=== PATIENT | female | born 1955 | race Caucasian/White ===

== ENCOUNTER 2019-07-03 23:20 | Emergency (ER) | payer MEDICARE, OTHER, SELFPAY ==
[2019-07-03 23:21] VITALS: BP 192/85; PULSE 68; RESP 18; TEMP 36.7; O2SAT 100; BMI 28.2
--- NOTE | 2019-07-03 23:31 | RAD_ITS ---
STUDY: X-RAY - LEFT SHOULDER REASON FOR EXAM: Female, 63 years old. s/p fall -- c/o pain to rt wrist and lt shoulder TECHNIQUE: 4 view(s) of the shoulder. COMPARISON: None. FINDINGS: Normal glenohumeral articulation. Normal acromioclavicular joint. Normal acromion. There is an avulsion fracture at the base of the greater tuberosity. The soft tissue structures are unremarkable. Normal visualized pulmonary apex. RAD/Shoulder min 2 Views IMPRESSION: There is an avulsion fracture at the base of the greater tuberosity. Electronically Signed: Ant Block, at 0:37 EST Tel , Service support ,
--- NOTE | 2019-07-03 23:31 | RAD_ITS ---
STUDY: X-RAY - RIGHT WRIST REASON FOR EXAM: Female, 63 years old. s/p fall -- c/o pain to rt wrist and lt shoulder TECHNIQUE: 3 view(s) of the wrist were obtained. COMPARISON: None. FINDINGS: There is nondisplaced fracture in the distal metaphysis of the radius. Normal radiocarpal articulation. Normal distal radioulnar articulation. Normal carpal bones. Normal carpal articulations. Normal carpometacarpal articulation of the thumb. Normal second through fifth carpometacarpal articulations. Normal visualized metacarpal bones. The soft tissue structures are unremarkable. RAD/Wrist min 3 Views IMPRESSION: There is nondisplaced fracture in the distal metaphysis of the radius. Electronically Signed: Ant Block, at 0:36 EST Tel , Service support ,
--- NOTE | 2019-07-03 23:31 | CT_ITS ---
STUDY: CT BRAIN WITHOUT CONTRAST REASON FOR EXAM: Female, 63 years old. FELL ON STAIRS, LACERATION TO RIGHT SIDE HEAD WITH STITCHES RADIATION DOSAGE (If Supplied By Facility): CTDIvol = ( 44.99 ) mGy, DLP = ( 829.85 ) mGycm TECHNIQUE: Transaxial CT imaging of the brain was performed without administration of intravenous contrast material. Individualized dose optimization techniques were used for this CT. COMPARISON: No relevant priors. FINDINGS: Normal soft tissue structures. Normal calvarium. Normal size ventricles and extra-axial spaces for the patient''s age. There are areas of decreased attenuation within the white matter tracts of the supratentorial brain, consistent with microvascular disease changes. Normal basal ganglia and thalami. Normal brainstem. Normal cerebellum. There is no intracranial hemorrhage. There are no findings of an acute ischemic infarction. Normal visualized paranasal sinuses. CT/Brain/Head without Contrast IMPRESSION: Chronic involutional changes of the brain. Electronically Signed: Ant Block, at 0:22 EST Tel , Service support ,
--- NOTE | 2019-07-03 23:49 | ED.VIS.GEN ---
History of Present Illness Chief Complaint: Fall Informant: Patient, Family Onset: Today Narrative: Just prior to arrival the patient was walking up some steps after letting her dog out the house. She fell forward striking her head on some cinderblocks. She tried to catch herself and injured her right wrist and left shoulder. Unknown last tetanus. No nausea vomiting. No loss of consciousness. Past Medical History - Allergies and Home Meds Allergies/Adverse Reactions: Allergies No Known Allergies Allergy (Verified 07/03/19 23:21) Primary Care Physician: Jose Antonio Dalton DO [Primary Care Provider] - 7 Days for suture removal Smoking Status: Never smoker Review of Systems General: Denies: Chills, Fever, Sweats Eyes: Denies: Visual changes - bilaterally, Diplopia ENT: Denies: Rhinorrhea, Sore throat Cardiovascular: Denies: Chest pain, Palpitations Respiratory: Denies: Dyspnea, Cough, Dyspnea on exertion Gastrointestinal: Denies: Abdominal pain, Nausea, Vomiting, Diarrhea, Melena, Hematochezia Genitourinary: Denies: Dysuria, Hematuria, Frequency Musculoskeletal: Denies: Back pain, Extremity Pain Skin: Denies: Rash, Wounds Neurological: Denies: Headache, Weakness, Numbness Physical Exam Vital Signs/Narrative: Vital Signs Temp Pulse Resp BP Pulse Ox 07/03/19 23:21 98.1 F 68 18 192/85 H 100 Inital Vital Signs reviewed: Yes General: Well nourished, Well developed, No Acute Distress Head: Normocephalic, Trauma, - - Right parietal scalp demonstrates a 3-1/2 cm long linear laceration with arteriole bleed. No bony depression. Eyes: Perrl, EOMI ENT: Moist mucous membranes, No rhinorrhea Neck: Supple, Nontender Cardiovascular: Regular rate, Regular rhythm, No murmurs Respiratory: No distress, CTA bilaterally, Chest nontender Abdomen: Soft, Nontender, Nondistended, Normal bowel sounds Back: Nontender, Normal Inspection Extremities: No edema, Tenderness - Patient has tenderness and limited range of motion at the left shoulder. No clavicle or AC tenderness. No symptoms below the elbow.The right wrist demonstrates a focal area of hematoma over the lateral dorsum of the wrist. She is able to supinate and pronate. Skin: Normal color, No rash Neurological: Alert, Oriented x3, Cranial nerves II-XII grossly intact, Normal Strength, Normal Sensation Psychological: Normal affect, Normal Mood Diagnostic/Tx/Re-eval - Medical Decision Making Patient's tetanus status was updated with Adacel. The scalp laceration was locally anesthetized using 1% lidocaine with epinephrine. Once the hair was removed out of the way to identify the laceration 3-0 simple interrupted Ethilon sutures were placed (total of 5). This provided homeostasis. Patient tolerated the procedure extremely well. Patient was then taken to CT scan and had x-rays of her shoulder and wrist performed. CT the brain was negative for intracranial hemorrhage or skull fracture. X-rays of the wrist demonstrated a distal radius fracture and x-rays of the shoulder demonstrated a proximal humerus fracture. Humerus fracture will be placed in a sling. The right wrist was placed in an AP splint. She has not seen orthopedics in the past. She received 10 mg oxycodone here and will be discharged home with a prescription for same. Wound care discussed with patient. Anibal Haynes on-call for [facility]. Procedures - Upper Extremity Splints Upper Extremity Splint: Plaster Splint Fabrication: Fabricated Location: Right - She was placed in an AP plaster splint with the wrist in the safe position. Neurovascular intact pre-and post application. ED Disposition - Plan for ED Patient: Disposition: Home or Assisted Living Diagnosis: Scalp laceration, Fracture of right distal radius, Left humeral fracture Instructions: LACERATION, All Prescriptions: Oxycodone HCl/Acetaminophen [Percocet 5/325] 1 tab PO Q6H PRN PRN 3 Days #12 tab PRN Reason: Pain Prescription Printed Referrals: Jose Antonio Dalton DO [Primary Care Provider] - 7 Days for suture removal Anibal Haynes MD [STAFF PHYSICIAN] - (call to arrange orthopedic follow up)
[2019-07-04] MEDS: oxyCODONE 5 MG Tablet 10 MG PO (00:10)
[2019-07-04] MEDS: Diphth,Pertuss(Acell),Tet Vac 0.5 ML Vial IM (00:12)
[2019-07-04 00:38] VITALS: BP 162/87; PULSE 82; RESP 18; O2SAT 96
== END 2019-07-04 00:42 | disposition home or self-care (01) ==
PROVIDERS: Emergency Provider Emergency Medicine; Family Provider Student in an Organized Health Care Education/Training Program; PCP Student in an Organized Health Care Education/Training Program
DX: S01.01XA Laceration without foreign body of scalp, initial encounter (principal); S52.501A Unspecified fracture of the lower end of right radius, initial encounter for closed fracture; S42.252A Displaced fracture of greater tuberosity of left humerus, initial encounter for closed fracture; W10.9XXA Fall (on) (from) unspecified stairs and steps, initial encounter; Y93.9 Activity, unspecified; Y92.9 Unspecified place or not applicable
CPT/HCPCS: 12002; 29125; 70450; 73030; 73110; 90471; 90715; 99284

== ENCOUNTER 2020-08-22 07:39 | Outpatient (RCR) | payer MEDICARE, OTHER, SELFPAY ==
[2020-08-22] MEDS: COVID-19 VACC, MRNA(PFIZER)/PF 30 MCG/0.3 ML SYRINGE IM (16:39)
[2020-09-12] MEDS: COVID-19 VACC, MRNA(PFIZER)/PF 30 MCG/0.3 ML SYRINGE IM (15:49)
== END 2020-11-26 23:59 ==
LOC: IMMUN 07:39
PROVIDERS: PCP Student in an Organized Health Care Education/Training Program; Referring Provider Family Medicine; Visit Provider Family Medicine
DX: Z23 Encounter for immunization (principal)
CPT/HCPCS: 0001A; 0002A; 91300

== ENCOUNTER 2022-03-27 13:46 | Inpatient (IN) | payer MEDICARE, OTHER, SELFPAY ==
[2022-03-27] VITALS (10 sets, daily range): BP systolic 93–156; BP diastolic 55–97; PULSE 66–125; RESP 16–26; TEMP 36.4–36.6; O2SAT 95–100; BMI 29.1; BMI 27.6
--- NOTE | 2022-03-27 14:04 | RAD_ITS ---
STUDY: X-RAY CHEST REASON FOR EXAM: Female, 66 years old. chest pain TECHNIQUE: Single AP portable view of the chest. COMPARISON: None. FINDINGS: Sternotomy wires are midline. The lungs are clear and expanded. There is no demonstrated pleural abnormality. Normal size heart. Normal mediastinum and jules. Normal visualized pulmonary arteries. Normal visualized aortic arch and descending thoracic aorta. Normal visualized thoracic spine. Normal visualized ribs, clavicles, and shoulders. There is no demonstrated abnormality of the visualized soft tissue structures of the upper abdomen. RAD/Chest 1 View (Portable) IMPRESSION: No evidence of acute cardiopulmonary process. Electronically Signed: Mohsen Pham DO at 14:18 EDT ,
[2022-03-27] MEDS: Aspirin 81 MG TAB.CHEW 324 MG PO (14:13)
--- NOTE | 2022-03-27 14:24 | ED.VIS.CHEST ---
HPI History of Present Illness Chief Complaint: Chest Pain Informant: patient Narrative Narrative: Patient is a 66-year-old female that is status post aortic valve repair secondary to severe aortic stenosis as well as CABG x2 vessels on 03/17/2022. This was performed at [facility]. She was discharged on 03/25-2 days ago. She was discharged to the [facility] nursing facility for cardiac rehab. Postop course was complicated by proximal atrial fibrillation she was started on Eliquis. She is presenting for chest pain. She states that pain in her chest is pulsating and radiates to her left hand, shoulder blade and neck. She did not have pain like this after her surgery and this feels different than her postoperative pain. She states that she felt okay this morning when she woke up but her pain started when she was in the shower today. At first it was stabbing but now it is more dull in nature. She feels that she is been mildly short of breath for the past few days. She took a pain pill at her nursing facility with no improvement of her symptoms so she came to the ER for further evaluation. She notes that she felt flushed when the pain started. Denies any numbness or tingling in her legs, abdominal pain, nausea or vomiting. No other complaints at this time. [facility] Medical History (Updated 03/27/22 @ 23:[address] Mary Staley, ) CAD (coronary artery disease) Diabetes mellitus, type 2 HLD (hyperlipidemia) HTN (hypertension) Obesity PAF (paroxysmal atrial fibrillation) Valvular heart disease Home Medications atorvastatin 40 mg tablet 40 mg PO DAILY 07/03/19 [History Last Taken Unknown] metformin 500 mg tablet,extended release 24 hr 1,500 mg PO DAILY 07/03/19 [History Last Taken Unknown] multivitamin with minerals 1 tab PO DAILY 07/03/19 [History Last Taken Unknown] omega 3-dha 60 mg-epa 90 mg-fish oil 500 mg capsule, delayed release 500 mg PO DAILY 07/03/19 [History Last Taken Unknown] apixaban 5 mg tablet (Eliquis) 5 mg PO BID 03/27/22 [History Last Taken Unknown] aspirin 81 mg tablet 81 mg PO DAILY 03/27/22 [History Last Taken Unknown] furosemide 40 mg tablet (Lasix) 40 mg PO BID 03/27/22 [History Last Taken Unknown] metoprolol tartrate 50 mg tablet 50 mg PO Q8H 03/27/22 [History Last Taken Unknown] oxycodone 5 mg tablet 5 mg PO Q6H PRN pain 03/27/22 [History Last Taken Unknown] pantoprazole 20 mg tablet,delayed release 20 mg PO DAILY 03/27/22 [History Last Taken Unknown] Allergy/AdvReac Type Severity Reaction Status Date / Time No Known Allergies Allergy Verified 07/03/19 23:21 Family History Mother Hypertension CVA (cerebral vascular accident) Father Myocardial infarction CAD (coronary artery disease) S/P CABG (coronary artery bypass graft) Surgical History (Updated 03/27/22 @ 23:[address] Mary Staley, DO) History of bilateral tubal ligation S/P AVR (aortic valve replacement) S/P CABG x 2 Social History (Updated 03/27/22 @ 20:44 by Telma Rivera) household members: spouse number of children: 3 current occupational status: retired Smoking Status: Never smoker alcohol intake: current alcohol intake frequency: holidays/special occasions only substance use type: does not use ROS ROS ED Constitutional Constitutional ED: Reports sweats; Denies chills or fever(s) Eyes Eyes: Denies blurry vision ENT ENT ED: Denies rhinorrhea or sore throat Cardiovascular Cardiovascular: Reports as per HPI and chest pain Respiratory/Chest Respiratory/Chest: Reports dyspnea; Denies cough Gastrointestinal Gastrointestinal: Denies abdominal pain, diarrhea or vomiting Genitourinary Genitourinary ED: Denies dysuria or hematuria Musculoskeletal Musculoskeletal: Denies back pain or myalgias Integumentary Denies rash Neurologic Neurologic: Denies headache(s) or weakness Psychiatric Psychiatric: Denies anxiety Hematologic/Lymphatic Hematologic/Lymphatic: Reports easy bleeding and easy bruising EXAM Physical Exam Const Vital Signs: 03/27/22 13:47 03/27/22 13:51 03/27/22 13:56 Temperature 97.6 F L Temperature Source Temporal Pulse Rate 125 H Respiratory Rate 26 H Respiratory Effort Short of Breath Blood Pressure 124/64 H Blood Pressure Mean 84 Pulse Ox 100 Oxygen Delivery Method Room Air Room Air 03/27/22 14:47 03/27/22 15:47 03/27/22 16:47 Temperature Temperature Source Pulse Rate 67 96 66 Respiratory Rate Respiratory Effort Blood Pressure 122/97 H 125/79 H 105/61 Blood Pressure Mean 105 94 75 Pulse Ox Oxygen Delivery Method 03/27/22 18:30 03/27/22 19:00 Temperature Temperature Source Pulse Rate 97 97 Respiratory Rate 17 16 Respiratory Effort Blood Pressure 110/55 L 93/58 L Blood Pressure Mean 73 69 Pulse Ox 98 98 Oxygen Delivery Method Room Air Positive well nourished and well developed General Appearance ED: well developed and NAD HEENT Reports dry mucous membranes normocephalic and atraumatic Mouth ED: Yes dry mucous membranes Mouth: dry mucous membranes Eyes PERRL and EOMs intact bilaterally Neck supple and no JVD Chest Wall Chest Narrative: Midline sternotomy surgical incision present. Well approximated with no signs of secondary infection, dehiscence or or other abnormality. Associated chest wall tenderness with palpation Resp normal respiratory effort and clear to auscultation bilaterally Cardio Rate: tachycardic Rhythm: abnormal rhythm irregularly irregular Peripheral Pulses: pulses 2+ throughout GI normal to inspection, nondistended, normoactive bowel sounds and soft to palpation Extremity normal to inspection General Extremety ED: Negative for edema General Extremity: Negative for edema Neuro oriented x3 Neuro Narrative: No focal deficits Sensorium / Orientation: awake and alert Psych mental status grossly normal Mood & Affect: anxious Skin no rashes or lesions noted Skin Narrative: Surgical incision anterior chest wall and upper abdomen, healing with no signs of infection Heart Score History: Slightly/Non-Suspicious ECG: Nonspecific Repolarization Age: >/= 65 years Risk Factors: >/= 3 Risk Factors or History of CAD Troponin: >/=3 x Normal Limit Score: 7 MDM MDM MDM Narrative Medical decision making narrative: Patient is evaluated for chest pain. She is a little less than 2 weeks status post atrial valve r replacement and CABG x2. She has associated shortness of breath. She is anticoagulated with Eliquis secondary to postoperative atrial fibrillation. Hemoglobin is mildly low at 11.8 but appropriate given her recent postoperative status. Initial paperwork showed creatinine of 3 from yesterday at nursing facility. Patient is given 162 mg of aspirin as she took 81 mg aspirin today and guidance morphine for pain control. Her pain on route resolves significantly with the morphine and she does not take the nitroglycerin. She is given IV fluids and her tachycardia also resolved. She is not given anything further for rate control. Patient's creatinine is elevated at 2.10. Her baseline appears to be closer to 1-1.3. Her high sensitive troponin is elevated at 218 and then on repeat 208. Her high sensitive troponin is elevated at 218 and then on repeat 208. As she is less than 2 weeks status post open heart surgery likely this is residual from that. I really suspect her chest pain is more incisional associated with her sternotomy. She will require admission for her renal function. Case is discussed with Dr. Alejo Jama, cardiothoracic surgery at [facility] who agrees that the troponin leak is likely from her recent surgery and does not think any acute intervention is needed on their hand. Is comfortable with us treating her MONTRELL at our facility and if anything develops in the meantime we can transfer her at a later point. Patient is agreeable this plan of care. I discussed the case with our cardiology on-call, Dr. Rojas, who does not feel like this is a cardiologic issue, but cardiothoracic and medicine. He does not have any recommendations at this time. Patient and family are agreeable with admission for MONTRELL at [facility]. Lab Data Attestation: I reviewed the patient's lab results. Labs: Laboratory Results - last 24 hr 03/27/22 03/27/22 03/27/22 14:15 14:15 14:15 WBC 9.2 RBC 3.82 L Hgb 11.8 L Hct 35.9 L MCV 94.0 MCH 30.9 MCHC 32.9 RDW Std Deviation 43.9 RDW Coeff of Abby 12.9 Plt Count 347 MPV 9.4 Immature Gran % (Auto) 0.400 Neut % (Auto) 61.3 Lymph % (Auto) 25.9 [place] % (Auto) 9.4 Eos % (Auto) 2.3 Baso % (Auto) 0.7 Absolute Neuts (auto) 5.6 Absolute Lymphs (auto) 2.38 Nucleated RBC % 0 Sodium 135 L Potassium 4.0 Chloride 97 L Carbon Dioxide 24.0 Anion Gap 14 BUN 49 H Creatinine 2.10 H Estim Creat Clear Calc 23.07 Est GFR (MDRD) Af Amer 30 L Est GFR (MDRD) Non-Af 25 L BUN/Creatinine Ratio 23.3 H Glucose 236 H Calcium 10.3 H Magnesium 2.2 Troponin I High Sens 218 H* B-Natriuretic Peptide 553.5 H 03/27/22 16:35 WBC RBC Hgb Hct MCV MCH MCHC RDW Std Deviation RDW Coeff of Abby Plt Count MPV Immature Gran % (Auto) Neut % (Auto) Lymph % (Auto) [place] % (Auto) Eos % (Auto) Baso % (Auto) Absolute Neuts (auto) Absolute Lymphs (auto) Nucleated RBC % Sodium Potassium Chloride Carbon Dioxide Anion Gap BUN Creatinine Estim Creat Clear Calc Est GFR (MDRD) Af Amer Est GFR (MDRD) Non-Af BUN/Creatinine Ratio Glucose Calcium Magnesium Troponin I High Sens 208 H* B-Natriuretic Peptide Radiography Chest X-Ray - ED: 1 View, Read by ED Physician, Read by Radiologist and No Acute Disease Diagnostic Testing: Clinical Impression(s) from Imaging Studies Chest X-Ray 03/27/22 14:04 IMPRESSION: No evidence of acute cardiopulmonary process. Electronically Signed: Mohsen Pham DO at 14:18 EDT Reading Location ID and State: [id number] / [place] , Service support , Rhythm Strip Rhythm Strip: A-fib Rate: 111 Ectopy: None EKG Initial EKG: Attestation: I personally reviewed and interpreted this EKG as follows: Interpretation: Atrial Fibrillation Comments: Atrial fibrillation at a rate of 111 Left axis deviation Bifascicular block with right bundle sonia block and left anterior fascicular block T wave inversions in V1 and V2 with no reciprocal changes Compared to prior EKG odd 03/25/2022, patient does doubt atrial fibrillation and tachycardic but no ST segment changes Discharge Plan Dx/Rx/DC Orders Clinical Impression: Chest pain, MONTRELL (acute kidney injury), S/P CABG x 2 Disposition Disposition: Acute Care Hospital [facility] Discharge Date/Time: 03/27/22 20:34
[2022-03-27 14:27] LABS: Absolute Lymphocyte Count 2.38 X10^3/uL (0.83-4.51); Absolute Neutrophil Count 5.6 X10^3/uL (2.0-7.7); Basophil# 0.06 X10^3/uL; Basophil% 0.7 % (0-1); Eosinophil# 0.21 X10^3/uL; Eosinophils% 2.3 % (0-5); Hematocrit 35.9 % (37-47); Hemoglobin 11.8 g/dL (12.0-15.0); Lymphocyte # 2.38 X10^3/ul (0.83-4.51); Lymphocyte % 25.9 % (19-41); Mean Corp Hgb Conc 32.9 g/dL (32-36); Mean Corpuscular Hgb 30.9 pg (27.0-32.0); Mean Platelet Vol. 9.4 fl (6.2-12.0); Monocyte# 0.86 X10^3/uL; Monocyte% 9.4 % (0-10); NRBC Flagged by Analyzer 0 % (0-5); Neutrophil # 5.63 X10^3/uL (2.7-7.7); Neutrophil % 61.3 % (47-70); Platelet Count 347 K/mm3 (150-450); RBC Distribution Width CV 12.9 % (11.6-14.6); RBC Distribution Width SD 43.9 fl (35.1-43.9); Red Blood Count 3.82 M/mm3 (4.2-5.4); White Blood Count 9.2 K/mm3 (4.4-11.0)
[2022-03-27 14:49] LABS: Anion Gap 14 (5-15); BUN 49 mg/dL (7-18); BUN/Creat Ratio 23.3 RATIO (10-20); Calcium,Total 10.3 mg/dL (8.5-10.1); Chloride 97 mmol/L (98-107); EST Glomerular Filtration Rate 25 mL/min (>60); Est Glom Filt Rate - Afr Amer 30 mL/min (>60); Estimated Creatinine Clearance 23.07 ml/min; Glucose 236 mg/dL (74-106); Magnesium 2.2 mg/dL (1.6-2.6); Sodium Level 135 mmol/L (136-145); Troponin-I HS (w/2H Reflex) 218 pg/mL (3.0-54.0)
[2022-03-27 14:56] LABS: BNP,B-Type NATRIURETIC PEPTIDE 553.5 pg/mL (0-100)
[2022-03-27] MEDS: 0.9% Normal Saline 1,000 ML 999 ML IV (14:58)
[2022-03-27] MEDS: Morphine 4 MG/ML Syringe IV (14:58)
[2022-03-27 16:23] LABS: Reflex Troponin-HS? (from REC) Y
[2022-03-27 17:08] LABS: Troponin-I HS 208 pg/mL (3.0-54.0)
--- NOTE | 2022-03-27 17:41 | PCM.HP.STD ---
HPI - General General Date of Admission: 03/27/22 Date of Service: 03/27/22 Chief Complaint: Chest pain HPI Narrative The patient is a 66 y/o F w/ PMHx: PAF, Obesity, HTN, HLD, Diabetes mellitus type II, Valvular Heart Disease w/ Aortic Stenosis s/p #23 CE AVR 03/17/22, CAD s/p CABG x 2 (LAD-MENDEZ, PLB-SVG, #23 CE AVR 03/17/22) who presents to the [facility] ED on 03/27/22 with history of recent discharge from [facility] following CABG and AVR on 05/25 transition to skilled facility with postop course complicated by PAF with initiation of Eliquis as well as continue metoprolol who now presents to the [facility] ED on 03/27/22 with history of onset chest pain with radiation to her left upper extremity including the shoulder blade, neck as well as left hand reporting the discomfort is 10 out of 10 in severity with pressure in her chest and more dull aching throb to the left upper extremity with associated sensation of being flushed as well as noted with no nausea or emesis reporting that the symptoms persisted for least 2 hours currently reporting her discomfort 3 out of 10 in severity but noting only some mild chest pressure with administration of pain regimen at the skilled facility however she had no improvement prompting skilled facility to transition her to the ED for evaluation. Work-up in the ED included T97.6, heart rate initially 125 with most recent repeat 66, BP 124/64 with most recent repeat 105/61, respiratory rate 26, 100% on room air, CBC with WBC 9.2, hemoglobin 11.8, MCV 94, platelet 347 without marked shift, BMP with sodium 135, chloride 97, BUN/creatinine 49/2.10, glucose 236, calcium 10.3, magnesium 2.2, BNP 553.5, initial troponin 218 with repeat 208, chest x-ray with no acute cardiopulmonary findings with sternotomy wires noted midline, EKG atrial fibrillation with initially RVR but improved while in the ED and compared to 03/25/22 improved, no acute evidence of ischemia. In the ED patient ministered full-strength aspirin 324 mg p.o. x1, nitroglycerin sublingual, normal saline bolus, morphine 4 mg IV x1. ED did discuss case with patient's cardiothoracic surgery team and they were amenable with patient remaining at [facility]. ED also discussed case with cardiology on-call, Dr. Rojas given patient's recent history recommended deferral of cardiology consult at this time and if necessary consideration of nephrology involvement if renal function worsened. COUNTS INCLUDE 234 BEDS AT THE [facility] Medical History (Updated 03/27/22 @ 19:[address] Lucina Salmon MD) CAD (coronary artery disease) Diabetes mellitus, type 2 HLD (hyperlipidemia) HTN (hypertension) Obesity PAF (paroxysmal atrial fibrillation) Valvular heart disease Home Medications atorvastatin 40 mg tablet 40 mg PO DAILY 07/03/19 [History Last Taken Unknown] metformin 500 mg tablet,extended release 24 hr 1,500 mg PO DAILY 07/03/19 [History Last Taken Unknown] multivitamin with minerals 1 tab PO DAILY 07/03/19 [History Last Taken Unknown] omega 3-dha 60 mg-epa 90 mg-fish oil 500 mg capsule, delayed release 500 mg PO DAILY 07/03/19 [History Last Taken Unknown] apixaban 5 mg tablet (Eliquis) 5 mg PO BID 03/27/22 [History Last Taken Unknown] aspirin 81 mg tablet 81 mg PO DAILY 03/27/22 [History Last Taken Unknown] furosemide 40 mg tablet (Lasix) 40 mg PO BID 03/27/22 [History Last Taken Unknown] metoprolol tartrate 50 mg tablet 50 mg PO Q8H 03/27/22 [History Last Taken Unknown] pantoprazole 20 mg tablet,delayed release 20 mg PO DAILY 03/27/22 [History Last Taken Unknown] Allergy/AdvReac Type Severity Reaction Status Date / Time No Known Allergies Allergy Verified 07/03/19 23:21 Family History (Updated 03/27/22 @ 17:[address] Lucina Salmon MD) Mother Hypertension CVA (cerebral vascular accident) Father Myocardial infarction CAD (coronary artery disease) S/P CABG (coronary artery bypass graft) Surgical History (Updated 03/27/22 @ 19:[address] Lucina Salmon MD) History of bilateral tubal ligation S/P AVR (aortic valve replacement) S/P CABG x 2 Social History (Updated 03/27/22 @ 17:[address] Lucina Salmon MD) household members: spouse Smoking Status: Never smoker alcohol intake: current alcohol intake frequency: holidays/special occasions only substance use type: does not use ROS ROS Narrative Admission Review of Systems: CONSTITUTIONAL: No weight loss, fever, chills, + weakness or fatigue. HEENT: Eyes: No visual loss, blurred vision, double vision or yellow sclerae. Ears, Nose, Throat: No hearing loss, sneezing, congestion, runny nose or sore throat. SKIN: + healing sternotomy incision, no drainage and occasional staged ecchymoses. CARDIOVASCULAR: + chest pain, chest pressure or chest discomfort, No palpitations, edema, orthopnea, syncopal events. RESPIRATORY: + shortness of breath, No cough or sputum, wheezing, hemoptysis. GASTROINTESTINAL: No anorexia, nausea, vomiting or diarrhea, abdominal pain, melena, BRBPR. GENITOURINARY: No dysuria, frequency, urgency or retention. NEUROLOGICAL: No headache, dizziness, syncope, paralysis, ataxia, numbness or tingling in the extremities, focal weakness, change in bowel or bladder control, seizure. MUSCULOSKELETAL: + muscle, back pain, joint pain or stiffness. HEMATOLOGIC: + anemia, bleeding or bruising. LYMPHATICS: No enlarged nodes. No history of splenectomy. PSYCHIATRIC: No history of depression or anxiety. ENDOCRINOLOGIC: No reports of sweating, cold or heat intolerance. No polyuria or polydipsia. ALLERGIES: No history of asthma, hives, eczema or rhinitis. Vital Signs Vital Signs Vital Signs: 03/27/22 13:47 03/27/22 13:51 03/27/22 13:56 Temperature 97.6 F L Temperature Source Temporal Pulse Rate 125 H Respiratory Rate 26 H Respiratory Effort Short of Breath Blood Pressure 124/64 H Blood Pressure Mean 84 Pulse Ox 100 Oxygen Delivery Method Room Air Room Air 03/27/22 14:47 03/27/22 15:47 03/27/22 16:47 Temperature Temperature Source Pulse Rate 67 96 66 Respiratory Rate Respiratory Effort Blood Pressure 122/97 H 125/79 H 105/61 Blood Pressure Mean 105 94 75 Pulse Ox Oxygen Delivery Method Weight Weight: 175 lb 4.28 oz Body Mass Index (BMI) 29.1 Physical Exam Narrative Physical Examination: General: Awake, alert, oriented x 3 and cooperative, seated upright in the ED bed, fatigued, notes chest discomfort has been subsiding. Skin: Normal color, normal turgor, no icterus, no cyanosi except for healing midline sternotomy and chest tube incisions s, well appearing as well as occasional staged ecchymoses. HEENT: AT/NC, EOMI, PERRLA, mildly dry MM, no carotid bruits or JVD noted. Lungs: Mildly diminished, greater bases, appropriate effort, no markedly noted rales, ronchi or wheezing. Heart: Irregular, rate controlled currently; no gallop, rub audible. Abdomen: Soft, overweight, NTTP, ND, distant normal BS, no HSM. Extremities: No cyanosis, clubbing, or edema. Neurological: Patient awake, alert, oriented x 3, cognitive function intact; pupils equally reactive to light and accommodation, cranial nerves II-XII grossly normal, moving all 4 extremities, no focal deficits, strength moderately global decreased given recent CABG with limitations of movement. Psychiatric: Affect appears fatigued otherwise normal, no acute evidence of depressive or anxiety feelings. Results Lab / Micro Data Result Diagrams: 03/27/22 14:15 03/27/22 14:15 Labs: Laboratory Results - last 24 hr 03/27/22 14:15: WBC 9.2, RBC 3.82 L, Hgb 11.8 L, Hct 35.9 L, MCV 94.0, MCH 30.9, MCHC 32.9, RDW Std Deviation 43.9, RDW Coeff of Abby 12.9, Plt Count 347, MPV 9.4, Immature Gran % (Auto) 0.400, Neut % (Auto) 61.3, Lymph % (Auto) 25.9, [place] % (Auto) 9.4, Eos % (Auto) 2.3, Baso % (Auto) 0.7, Absolute Neuts (auto) 5.6, Absolute Lymphs (auto) 2.38, Nucleated RBC % 0 03/27/22 14:15: Sodium 135 L, Potassium 4.0, Chloride 97 L, Carbon Dioxide 24.0, Anion Gap 14, BUN 49 H, Creatinine 2.10 H, Estim Creat Clear Calc 23.07, Est GFR (MDRD) Af Amer 30 L, Est GFR (MDRD) Non-Af 25 L, BUN/Creatinine Ratio 23.3 H, Glucose 236 H, Calcium 10.3 H, Magnesium 2.2, Troponin I High Sens 218 H* 03/27/22 14:15: B-Natriuretic Peptide 553.5 H 03/27/22 16:35: Troponin I High Sens 208 H* Radiology Impression Chest X-Ray 03/27/22 14:04 IMPRESSION: No evidence of acute cardiopulmonary process. Electronically Signed: Mohsen Pham, DO at 14:18 EDT Reading Location ID and State: [facility] / [place] , Service support , Assessment & Plan Assessment/Plan (1) Chest pain: (2) MONTRELL (acute kidney injury): PLAN: Plan The patient is a 66 y/o F w/ PMHx: PAF, Obesity, HTN, HLD, Diabetes mellitus type II, Valvular Heart Disease w/ Aortic Stenosis s/p #23 CE AVR 03/17/22, CAD s/p CABG x 2 (LAD-MENDEZ, PLB-SVG, #23 CE AVR 03/17/22) who presents to the [facility] ED on 03/27/22 with history of recent discharge from [facility] following CABG and AVR on 05/25 transition to skilled facility with postop course complicated by PAF with initiation of Eliquis as well as continue metoprolol who now presents to the [facility] ED on 03/27/22 with history of onset chest pain prompting skilled facility to transition her to the ED for evaluation. #1. Chest Pain with Elevated Troponin in the setting of recent CABG x 2 (LAD-MENDEZ,PLB-SVG) and AVR, suspect elevated troponin likely secondary to recent intervention, chest discomfort possibly related with recent operative intervention: In the ED initial troponin 218 with repeat 208 which would be expected chest x-ray with no acute cardiopulmonary findings with sternotomy wires noted midline, EKG atrial fibrillation with initially RVR but improved while in the ED and compared to 03/25/22 improved, no acute evidence of ischemia. Will admit to PCU, maintain on a monitored bed, continue serial cardiac enzymes and EKGs. Magnesium level 2.2. We will continue medical management. ED did discuss case with patient's cardiothoracic surgery team and they were amenable with patient remaining at [facility]. ED also discussed case with cardiology on-call, Dr. Rojas given patient's recent history recommended deferral of cardiology consult at this time and if necessary consideration of nephrology involvement if renal function worsened. Of note patient is interested in potentially transitioning to TCU or acute rehab if she is a candidate therefore case management will be consulted. #2. Acute kidney injury: Secondary to likely. Admission BUN/Cr 49/2.10, 03/25/2022 labs performed per [facility] with BUN/creatinine 35/1.38 and 03/19/2022 BUN/creatinine 18/1.37. Will hydrate judiciously, hold nephrotoxic medications and repeat chemistry in AM, obtain FeNa assessment, obtain UA. #3. Valvular heart disease: Status post recent AVR (#23 CE) during also CABG x 2 (LAD-MENDEZ,PLB-SVG) as noted. From review of outside records, patient Preop LVEF: 67% RVF: Normal. Trace to 1+MR. Trace TR. Severe pkmn grad 48/28 mmHg. SAVAGE 0.62 cm2 and postop LVEF: Normal RVF: Normal. #4. PAF: We will continue patient home Eliquis as well as metoprolol regimen. From review of outside facility records patient postoperatively did have onset of atrial fibrillation with RVR and was treated with amnio bolus as well as infusion, placed on beta-monserrat metoprolol 50 mg every 8 hours with episodes of converting to sinus rhythm however she then returned into atrial fibrillation and was also started on Eliquis. Patient is planned to follow-up with EP as an outpatient. #5. Hypertension: Continue home regimen including metoprolol, holding Lasix regimen given MONTRELL, resume once appropriate, PRN hydralazine. #6. Hyperlipidemia: Continue home statin regimen. #7. Obesity: Weight loss and lifestyle changes encouraged. #8. Diabetes mellitus type II: Hold oral home regimen, ADA, accu checks w/ ISS. #9. DVT prophylaxis: SCDs, continue patient home Eliquis regimen. #10. CODE status: Patient NILE is her who is present and living will is currently in place. Discussed CODE status at length including difference between FULL code, DNR-CCA and DNR-CC status. Following discussions about the differences in these status, requested Full Code status. Advanced Care Planning Face to Face Time: 16 minutes. Charges/Coding Visit Charges Inpatient E&M: 29749 Init Hosp L3 Procedures Hospitalists Procedures: 54473 Advncd Care Plan 30 Min
--- NOTE | 2022-03-27 18:18 | ED.RN ---
CALLED [facility] MAIN TO HAVE WHOEVER IS NOT CALL FOR DR. HARVEY. FOOD SERVICE TECHNICIAN STATES IF WE DO NOT HEAR BACK FROM A DOCTOR BY 1917 WE CAN CALL TO HAVE THEM PAGE AGAIN.
--- NOTE | 2022-03-27 18:30 | CM.ED ---
MARGARITO was advised by RN that patient's family would like to speak to oncology social work. Family reports that patient was at [facility] and [facility] said that [facility] did cardiac rehab. Thus patient went to [facility]. Patient is interested in TCU/RU for cardiac rehab. MARGARITO called [facility] and left a voice mail. MARGARITO sent email advising of patient's name and desire of family for patient to come to TCU/RU and patient currently being transferred to [facility]. MARGARITO also provided family with [facility] direct number for RU/TCU referrals. Plan: Resources provided Dee KABA
--- NOTE | 2022-03-27 18:34 | ED.RN ---
DR. HARVEY CALLED BACK AND SPOKE WITH DR. CRANE.
--- NOTE | 2022-03-27 20:21 | EKG12_ITS ---
Test Reason : CP ADMIT Blood Pressure : / mmHG Vent. Rate : 101 BPM Atrial Rate : 000 BPM P-R Int : 000 ms QRS Dur : 128 ms QT Int : 422 ms P-R-T Axes : 000 -68 053 degrees QTc Int : 547 ms Atrial fibrillation with rapid ventricular response Right bundle branch block Left anterior fascicular block Bifascicular block Abnormal ECG When compared with ECG of 27-MAR-2022 13:51, MANUAL COMPARISON REQUIRED, DATA IS UNCONFIRMED Confirmed by JESUS LOAIZA, KALEY ([id number]), commissioning editor FRANCI BRUNER ([id number]) on 03/31/2022 9:30:35 AM Referred By: Confirmed By:KALEY LEE MD
[2022-03-27] MEDS: oxyCODONE 5 MG Tablet PO (21:08)
[2022-03-27] MEDS: Atorvastatin Calcium 40 MG Tablet PO (21:08)
[2022-03-27] MEDS: Senna/Docusate Sodium 1 Tablet 2 TABLET PO (21:08)
[2022-03-27] MEDS: Metoprolol Tartrate 50 MG Tablet PO (21:09)
[2022-03-27 21:11] LABS: Troponin-I HS 210 pg/mL (3.0-54.0)
[2022-03-27 21:31] LABS: Bedside Glucose 149 mg/dL (74-106)
[2022-03-27] MEDS: 0.9% Normal Saline 1,000 ML 100 ML IV (21:31)
[2022-03-27] MEDS: 0.9% Saline Lock 10 ML Syringe IV (21:38)
[2022-03-27] MEDS: APIXABAN 5 MG TABLET PO (22:09)
[2022-03-28] VITALS (10 sets, daily range): BP systolic 100–136; BP diastolic 64–83; PULSE 67–98; RESP 16–18; TEMP 36.1–36.9; O2SAT 93–98
[2022-03-28] MEDS: oxyCODONE 5 MG Tablet PO ×4 (01:40→18:28)
[2022-03-28 05:19] LABS: Mucous, Urine 0 SEEN /hpf (<or=2+); Red Blood Cells-Urine 0 SEEN /hpf (0-5)
[2022-03-28 05:21] LABS: Color, Urine Yellow (Yellow); Glucose, Dipstick Normal (Normal); Ketone-Dipstick Negative (Negative); Leukocyte Esterase-Dipstick 500 /ul (Negative); Nitrite-Dipstick Negative (Negative); Occult Blood-Urine Negative /ul (Negative); Protein-Dipstick Negative (Negative); Urine Bilirubin Dipstick Negative (Negative); Urine Clarity Clear (Clear); Urine Urobilinogen Normal (Normal)
[2022-03-28 05:35] LABS: Bacteria 3+ /hpf (None Seen); Renal Epithelial Cells 0-5 SEEN /hpf (0-5); Squamous Epithelial Cells - UA 10-25 SEEN /hpf (5-10); White Blood Cells 10-25 SEEN /hpf (0-5)
[2022-03-28 05:45] LABS: Urine Sodium 49 mmol/L (Not Establ.)
[2022-03-28 05:58] LABS: Absolute Neutrophil Count 4.8 X10^3/uL (2.0-7.7); Basophil# 0.07 X10^3/uL; Basophil% 0.8 % (0-1); Eosinophil# 0.33 X10^3/uL; Eosinophils% 3.9 % (0-5); Hematocrit 29.8 % (37-47); Hemoglobin 9.8 g/dL (12.0-15.0); Lymphocyte % 28.7 % (19-41); Mean Corp Hgb Conc 32.9 g/dL (32-36); Mean Corpuscular Volume 97.4 fL (81-99); Mean Platelet Vol. 9.4 fl (6.2-12.0); Monocyte# 0.78 X10^3/uL; Monocyte% 9.3 % (0-10); NRBC Flagged by Analyzer 0 % (0-5); Neutrophil # 4.75 X10^3/uL (2.7-7.7); Neutrophil % 56.8 % (47-70); Platelet Count 297 K/mm3 (150-450); RBC Distribution Width SD 46.1 fl (35.1-43.9); Red Blood Count 3.06 M/mm3 (4.2-5.4); White Blood Count 8.4 K/mm3 (4.4-11.0)
[2022-03-28] MEDS: 0.9% Normal Saline 1,000 ML 100 ML IV ×2 (06:23→16:32)
[2022-03-28] MEDS: Nystatin Powder 15gm Bottle 1 APPLIC TOPICAL ×2 (06:27→13:11)
[2022-03-28] MEDS: Metoprolol Tartrate 50 MG Tablet PO ×2 (06:28→13:12)
[2022-03-28] MEDS: Insulin Lispro 100 UNIT/ML INSULN.PEN SC ×2 (06:43→11:46)
[2022-03-28 06:45] LABS: ALB/GLOB Ratio 1.1 RATIO (0.9-2.4); AST(SGOT) 14 U/L (15-37); Alanine Aminotransfer ALT/SGPT 23 U/L (13-56); Albumin, Serum 3.3 g/dL (3.2-5.0); Alkaline Phosphatase 74 U/L (45-117); Anion Gap 8 (5-15); BUN 38 mg/dL (7-18); BUN/Creat Ratio 22.9 RATIO (10-20); Calcium,Total 8.8 mg/dL (8.5-10.1); Chloride 106 mmol/L (98-107); Creatinine, Serum 1.66 mg/dL (0.55-1.02); EST Glomerular Filtration Rate 33 mL/min (>60); Est Glom Filt Rate - Afr Amer 39 mL/min (>60); Estimated Creatinine Clearance 29.19 ml/min; Globulin 3.1 g/dL (2.2-4.2); Glucose 154 mg/dL (74-106); Potassium 4.1 mmol/L (3.5-5.1); Protein, Total 6.4 g/dL (6.4-8.2); Sodium Level 140 mmol/L (136-145)
[2022-03-28] MEDS: Ceftriaxone 1 GM/50 ML BAG IV (06:46)
[2022-03-28 07:05] LABS: Bedside Glucose 151 mg/dL (74-106)
--- NOTE | 2022-03-28 07:35 | PCM.PN.HOSP ---
Objective Data Objective Data Vital Signs: Vital Signs Temp Pulse Resp BP Pulse Ox O2 Del Method 98.2 F 98 18 100/71 94 Room Air 03/28/22 06:28 03/28/22 06:28 03/28/22 06:28 03/28/22 06:28 03/28/22 06:28 03/28/22 06:28 Oxygen Delivery Method Room Air Weight: 166 lb 3.657 oz Body Mass Index (BMI) 27.6 Intake & Output: Intake and Output for Last 24 Hours 03/26/22 03/27/22 03/28/22 23:59 23:59 23:59 Intake Total 1240 / 1240 1231.67 / 1231.67 Output Total 200 / 200 Balance 1240 / 1240 1031.67 / 1031.67 Lab / Micro Data Result Diagrams: 03/28/22 05:02 03/28/22 05:02 Labs: Laboratory Results - last 24 hr 03/27/22 14:15: WBC 9.2, RBC 3.82 L, Hgb 11.8 L, Hct 35.9 L, MCV 94.0, MCH 30.9, MCHC 32.9, RDW Std Deviation 43.9, RDW Coeff of Abby 12.9, Plt Count 347, MPV 9.4, Immature Gran % (Auto) 0.400, Neut % (Auto) 61.3, Lymph % (Auto) 25.9, [place] % (Auto) 9.4, Eos % (Auto) 2.3, Baso % (Auto) 0.7, Absolute Neuts (auto) 5.6, Absolute Lymphs (auto) 2.38, Nucleated RBC % 0 03/27/22 14:15: Sodium 135 L, Potassium 4.0, Chloride 97 L, Carbon Dioxide 24.0, Anion Gap 14, BUN 49 H, Creatinine 2.10 H, Estim Creat Clear Calc 23.07, Est GFR (MDRD) Af Amer 30 L, Est GFR (MDRD) Non-Af 25 L, BUN/Creatinine Ratio 23.3 H, Glucose 236 H, Calcium 10.3 H, Magnesium 2.2, Troponin I High Sens 218 H* 03/27/22 14:15: B-Natriuretic Peptide 553.5 H 03/27/22 16:35: Troponin I High Sens 208 H* 03/27/22 20:40: Troponin I High Sens 210 H* 03/27/22 21:11: POC Glucose 149 H 03/28/22 05:02: WBC 8.4, RBC 3.06 L, Hgb 9.8 L, Hct 29.8 L, MCV 97.4, MCH 32.0, MCHC 32.9, RDW Std Deviation 46.1 H, RDW Coeff of Abby 13.0, Plt Count 297, MPV 9.4, Immature Gran % (Auto) 0.500, Neut % (Auto) 56.8, Lymph % (Auto) 28.7, [place] % (Auto) 9.3, Eos % (Auto) 3.9, Baso % (Auto) 0.8, Absolute Neuts (auto) 4.8, Absolute Lymphs (auto) 2.40, Nucleated RBC % 0 03/28/22 05:02: Sodium 140, Potassium 4.1, Chloride 106, Carbon Dioxide 26.0, Anion Gap 8, BUN 38 H, Creatinine 1.66 H, Estim Creat Clear Calc 29.19, Est GFR (MDRD) Af Amer 39 L, Est GFR (MDRD) Non-Af 33 L, BUN/Creatinine Ratio 22.9 H, Glucose 154 H, Calcium 8.8, Total Bilirubin 0.60, AST 14 L, ALT 23, Alkaline Phosphatase 74, Total Protein 6.4, Albumin 3.3, Globulin 3.1, Albumin/Globulin Ratio 1.1 03/28/22 05:10: Ur Random Sodium 49 03/28/22 05:10: Urine Color Yellow, Urine Clarity Clear, Urine pH 6.0, Ur Specific [place] 1.010, Urine Protein Negative, Urine Glucose (UA) Normal, Urine Ketones Negative, Urine Occult Blood Negative, Urine Nitrite Negative, Urine Bilirubin Negative, Urine Urobilinogen Normal, Ur Leukocyte Esterase 500 H, Urine RBC 0 SEEN, Urine WBC 10-25 SEEN, Ur Squamous Epith Cells 10-25 SEEN, Ur Renal Epithelial Cell 0-5 SEEN, Urine Bacteria 3+, Urine Mucus 0 SEEN 03/28/22 05:10: Urine Creatinine 76.60 03/28/22 06:31: POC Glucose 151 H Radiography Diagnostic Testing: Radiology Impression Chest X-Ray 03/27/22 14:04 IMPRESSION: No evidence of acute cardiopulmonary process. Electronically Signed: Mohsen Pham DO at 14:18 EDT Reading Location ID and State: [facility] / [place] , Service support , Rhythm Strip Rhythm Strip: A-fib Rate: 111 Ectopy: None Assessment & Plan Assessment/Plan (1) Chest pain: (2) MONTRELL (acute kidney injury): PLAN: Plan The patient is a 66 y/o F w/ PMHx: PAF, Obesity, HTN, HLD, Diabetes mellitus type II, Valvular Heart Disease w/ Aortic Stenosis s/p #23 CE AVR 03/17/22, CAD s/p CABG x 2 (LAD-MENDEZ, PLB-SVG, #23 CE AVR 03/17/22) who presents to the [facility] ED on 03/27/22 with history of recent discharge from [facility] following CABG and AVR on 05/25 transition to skilled facility with postop course complicated by PAF with initiation of Eliquis as well as continue metoprolol who now presents to the [facility] ED on 03/27/22 with history of onset chest pain prompting skilled facility to transition her to the ED for evaluation. #1. Chest Pain with Elevated Troponin in the setting of recent CABG x 2 (LAD-MENDEZ,PLB-SVG) and AVR, suspect elevated troponin likely secondary to recent intervention, chest discomfort possibly related with recent operative intervention: In the ED initial troponin 218 with repeat 208 which would be expected chest x-ray with no acute cardiopulmonary findings with sternotomy wires noted midline, EKG atrial fibrillation with initially RVR but improved while in the ED and compared to 03/25/22 improved, no acute evidence of ischemia. Will admit to PCU, maintain on a monitored bed, continue serial cardiac enzymes and EKGs. Magnesium level 2.2. We will continue medical management. ED did discuss case with patient's cardiothoracic surgery team and they were amenable with patient remaining at [facility]. ED also discussed case with cardiology on-call, Dr. Rojas given patient's recent history recommended deferral of cardiology consult at this time and if necessary consideration of nephrology involvement if renal function worsened. Of note patient is interested in potentially transitioning to TCU or acute rehab if she is a candidate therefore case management will be consulted. ED physician, Dr. Staley discussed with Dr. Alejo Jama, cardiothoracic surgery at [facility] who agrees that the troponin leak is likely from her recent surgery and does not think any acute intervention is needed on their hand.? Is comfortable with us treating her MONTRELL at our facility and if anything develops in the meantime we can transfer her at a later point.? #2. Acute kidney injury: Secondary to likely. Admission BUN/Cr 49/2.10, 03/25/2022 labs performed per [facility] with BUN/creatinine 35/1.38 and 03/19/2022 BUN/creatinine 18/1.37. Will hydrate judiciously, hold nephrotoxic medications and repeat chemistry in AM, obtain FeNa assessment, obtain UA. #3. Valvular heart disease: Status post recent AVR (#23 CE) during also CABG x 2 (LAD-MENDEZ,PLB-SVG) as noted. From review of outside records, patient Preop LVEF: 67% RVF: Normal. Trace to 1+MR. Trace TR. Severe pkmn grad 48/28 mmHg. SAVAGE 0.62 cm2 and postop LVEF: Normal RVF: Normal. #4. PAF: We will continue patient home Eliquis as well as metoprolol regimen. From review of outside facility records patient postoperatively did have onset of atrial fibrillation with RVR and was treated with amnio bolus as well as infusion, placed on beta-monserrat metoprolol 50 mg every 8 hours with episodes of converting to sinus rhythm however she then returned into atrial fibrillation and was also started on Eliquis. Patient is planned to follow-up with EP as an outpatient. #5. Hypertension: Continue home regimen including metoprolol, holding Lasix regimen given MONTRELL, resume once appropriate, PRN hydralazine. #6. Hyperlipidemia: Continue home statin regimen. #7. Obesity: Weight loss and lifestyle changes encouraged. #8. Diabetes mellitus type II: Hold oral home regimen, ADA, accu checks w/ ISS. #9. DVT prophylaxis: SCDs, continue patient home Eliquis regimen. #10. CODE status: Patient NILE is her who is present and living will is currently in place. Discussed CODE status at length including difference between FULL code, DNR-CCA and DNR-CC status. Following discussions about the differences in these status, requested Full Code status. Advanced Care Planning Face to Face Time: 16 minutes.
[2022-03-28] MEDS: Multivitamins,Ther W-Minerals Tablet 1 TABLET PO (08:18)
[2022-03-28] MEDS: Aspirin 81 MG TAB.CHEW PO (08:19)
[2022-03-28] MEDS: Glucerna Shake 120 ML LIQUID PO ×3 (08:19→16:20)
--- NOTE | 2022-03-28 09:46 | TREXTCAR_ITS ---
Diet Diet Order/Speech Therapy: 03/27/22 20:21 Diet: Cardiac: Calorie-Controlled Food consistency:: Regular Liquid Consistency:: Regular/Thin How many daily calories?: 1800 calorie Routine Orders/Code Status Suppository Type: Dulcolax 10mg Suppository Frequency: Daily PRN Code Status: Full Code Wound(s) midline chest: Wound Type: Surgical Incision bilateral legs: Wound Type: Surgical Incision Therapies Weight Bearing: Weight bearing as tolerated Extremity Affected:: Bilateral Lower Physical Therapy: Eval and Treat Occupational Therapy: Eval and Treat Speech Therapy: Eval and Treat Problem/Diagnosis (1) Chest pain: Status: Acute Code(s): R07.9 - Chest pain, unspecified (2) MONTRELL (acute kidney injury): Status: Acute Code(s): N17.9 - Acute kidney failure, unspecified Plan The patient is a 66 y/o F w/ PMHx: PAF, Obesity, HTN, HLD, Diabetes mellitus type II, Valvular Heart Disease w/ Aortic Stenosis s/p #23 CE AVR 03/17/22, CAD s/p CABG x 2 (LAD-MENDEZ, PLB-SVG, #23 CE AVR 03/17/22) who presents to the [facility] ED on 03/27/22 with history of recent discharge from [facility] following CABG and AVR on 05/25 transition to skilled facility with postop course complicated by PAF with initiation of Eliquis as well as continue metoprolol who now presents to the [facility] ED on 03/27/22 with history of onset chest pain prompting skilled facility to transition her to the ED for evaluation. #1. Chest Pain with Elevated Troponin in the setting of recent CABG x 2 (LAD-MENDEZ,PLB-SVG) and AVR, suspect elevated troponin likely secondary to recent intervention, chest discomfort possibly related with recent operative intervention: In the ED initial troponin 218 with repeat 208 which would be expected chest x-ray with no acute cardiopulmonary findings with sternotomy wires noted midline, EKG atrial fibrillation with initially RVR but improved while in the ED and compared to 03/25/22 improved, no acute evidence of ischemia. Will admit to PCU, maintain on a monitored bed, continue serial cardiac enzymes and EKGs. Magnesium level 2.2. We will continue medical management. ED did discuss case with patient's cardiothoracic surgery team and they were amenable with patient remaining at [facility]. ED also discussed case with cardiology on-call, Dr. Rojas given patient's recent history recommended deferral of cardiology consult at this time and if necessary consideration of nephrology involvement if renal function worsened. Of note patient is interested in potentially transitioning to TCU or acute rehab if she is a candidate therefore case management will be consulted. ED physician, Dr. Staley discussed with Dr. Alejo Jama, cardiothoracic surgery at [facility] who agrees that the troponin leak is likely from her recent surgery and does not think any acute intervention is needed on their hand.? Is comfortable with us treating her MONTRELL at our facility and if anything d evelops in the meantime we can transfer her at a later point.? #2. Acute kidney injury: Secondary to likely. Admission BUN/Cr 49/2.10, 03/25/2022 labs performed per [facility] with BUN/creatinine 35/1.38 and 03/19/2022 BUN/creatinine 18/1.37. Will hydrate judiciously, hold nephrotoxic medications and repeat chemistry in AM, obtain FeNa assessment, obtain UA. #3. Valvular heart disease: Status post recent AVR (#23 CE) during also CABG x 2 (LAD-MENDEZ,PLB-SVG) as noted. From review of outside records, patient Preop LVEF: 67% RVF: Normal. Trace to 1+MR. Trace TR. Severe pkmn grad 48/28 mmHg. SAVAGE 0.62 cm2 and postop LVEF: Normal RVF: Normal. #4. PAF: We will continue patient home Eliquis as well as metoprolol regimen. From review of outside facility records patient postoperatively did have onset of atrial fibrillation with RVR and was treated with amnio bolus as well as infusion, placed on beta-monserrat metoprolol 50 mg every 8 hours with episodes of converting to sinus rhythm however she then returned into atrial fibrillation and was also started on Eliquis. Patient is planned to follow-up with EP as an outpatient. #5. Hypertension: Continue home regimen including metoprolol, holding Lasix regimen given MONTRELL, resume once appropriate, PRN hydralazine. #6. Hyperlipidemia: Continue home statin regimen. #7. Obesity: Weight loss and lifestyle changes encouraged. #8. Diabetes mellitus type II: Hold oral home regimen, ADA, accu checks w/ ISS. #9. DVT prophylaxis: SCDs, continue patient home Eliquis regimen. #10. CODE status: Patient NILE is her who is present and living will is currently in place. Discussed CODE status at length including difference between FULL code, DNR-CCA and DNR-CC status. Following discussions about the differences in these status, requested Full Code status. Advanced Care Planning Face to Face Time: 16 minutes. Allergies/Procedures Done in Hospital Allergies No Known Allergies Allergy (Verified 07/03/19 23:21) Type of Care/Length of Stay Estimated LOS: Convalescent Care Less Than 30 days Type of Care Needed: Skilled Rehab Potential: Good Prognosis: Good Additional Orders/Day of Discharge Day of Discharge: 03/28/22 Dietary and Speech Recommendations Dietitian Recommendations/Changes: Will continue 1800 chary Cardiac diet w/ 120 ml Glucerna Shake 3x/day w/ medpass Available to provide diet education if desired by pt Discharge Plan Admission Admit Date/Time: 03/27/22 19:34 Primary Reason for Your Visit: Atypical chest pain Attending Provider: Kenton Gilbert Primary Care Provider: Jose Antonio Dalton Consulting Providers: Lucina Salmon Instructions Additional Instructions / Restrictions: Follow-up [facility], cardiothoracic surgeon as scheduled. Discharge Orders/Prescriptions Prescriptions: New acetaminophen [Tylenol] 325 mg Tablet 650 mg PO Q4H PRN PRN (Reason: Fever, pain 1-10) Qty: 0 0RF sennosides-docusate sodium [Stool Softener-Stimulant Laxat] 8.6-50 mg Tablet 2 tab PO BID PRN PRN (Reason: Constipation) Qty: 0 0RF nitroglycerin 0.4 mg Tablet, Sublingual 0.4 mg sublingual Q5M PRN (Reason: Cardiac/Chest Pain) Qty: 0 0RF insulin lispro [Humalog KwikPen Insulin] 100 unit/mL Insulin Pen See Protocol subcut ACHS Qty: 0 0RF Protocol: 3. Sliding Scale Insulin Med Dosing Condition: 150-189 mg/dl = 1 unit Condition: 190-229 mg/dl = 2 units Condition: 230-269 mg/dl = 3 units Condition: 270-309 mg/dl = 4 units Condition: 310-349 mg/dl = 5 units Condition: 350-399 mg/dl = 6 units Condition: 400-449 mg/dl = 7 units Condition: Greater than 449 call physician Protocol Text: - Use for Total Daily Dose of Insulin 37-55 units - Obsese, infected, or steroid patients MEDIUM DOSING ALGORITHIM cefadroxil 500 mg capsule 500 mg PO BID Qty: 10 0RF Continued atorvastatin 40 MG tablet 40 mg PO DAILY multivitamin with minerals 1 EACH tablet 1 tab PO DAILY omega 6-rph-imw-fish oil 500 MG capsule,delayed release(DR/EC) 500 mg PO DAILY pantoprazole 20 mg Tablet,Delayed Release (Dr/Ec) 20 mg PO DAILY metoprolol tartrate 50 mg Tablet 50 mg PO Q8H aspirin 81 mg Tablet 81 mg PO DAILY Eliquis 5 mg Tablet 5 mg PO BID oxycodone 5 mg Tablet 5 mg PO Q6H PRN (Reason: pain) Held furosemide [Lasix] 40 mg Tablet 40 mg PO BID Hold Instructions: Hold for 5 days and decide after repeat BMP Rx Instructions: Take one(1) tablet two(2) times daily form 03/25-03/28, Then Take one(1) tablet daily. Discontinued metformin 500 MG tablet 1,500 mg PO DAILY Referrals / Follow Up: Jose Antonio Dalton DO [Primary Care Provider] - Within 1 Week Disposition Disposition (needs filled in before D/C Order can be placed): Senior Living Facility
[2022-03-28] MEDS: APIXABAN 5 MG TABLET PO (10:00)
[2022-03-28] MEDS: Pantoprazole Sodium 20 MG Tablet PO (10:00)
--- NOTE | 2022-03-28 11:57 | CM.ED ---
MARGARITO note SW is aware of patient as the family, in the ED wanted TCU for patient. RN CM advised that patient could be discharged today per records review. MARGARITO had provided patient with a list of SNF in [place] while patient was in the ED. In the ED the family and patient reported a desire to go to TCU. MARGARITO called Nayeli Meza, director at TCU/ and requested she review patient's chart for admission. Ms. Meza called and advised that patient can be admitted to TCU but after 7pm. MARGARITO updated RN BRAD that patient can go to TCU today however, not till after 7pm. MARGARITO updated patient and her family. Plan: TCU [facility]
[2022-03-28 12:10] LABS: Bedside Glucose 213 mg/dL (74-106)
[2022-03-28] MEDS: Acetaminophen 325 MG Tablet 650 MG PO (13:10)
--- NOTE | 2022-03-28 15:55 | PCM.TXEXTCAR ---
Diet Diet Order/Speech Therapy: 03/27/22 20:21 Diet: Cardiac: Calorie-Controlled Food consistency:: Regular Liquid Consistency:: Regular/Thin How many daily calories?: 1800 calorie Routine Orders/Code Status Suppository Type: Dulcolax 10mg Suppository Frequency: Daily PRN Code Status: Full Code Wound(s) midline chest: Wound Type: Surgical Incision bilateral legs: Wound Type: Surgical Incision Therapies Weight Bearing: Weight bearing as tolerated Extremity Affected:: Bilateral Lower Physical Therapy: Eval and Treat Occupational Therapy: Eval and Treat Speech Therapy: Eval and Treat Problem/Diagnosis (1) Chest pain: Status: Acute Code(s): R07.9 - Chest pain, unspecified (2) MONTRELL (acute kidney injury): Status: Acute Code(s): N17.9 - Acute kidney failure, unspecified Allergies/Procedures Done in Hospital Allergies No Known Allergies Allergy (Verified 07/03/19 23:21) Type of Care/Length of Stay Estimated LOS: Convalescent Care Less Than 30 days Type of Care Needed: Skilled Rehab Potential: Good Prognosis: Good Additional Orders/Day of Discharge Day of Discharge: 03/28/22 Dietary and Speech Recommendations Dietitian Recommendations/Changes: Will continue 1800 chary Cardiac diet w/ 120 ml Glucerna Shake 3x/day w/ medpass Available to provide diet education if desired by pt Discharge Plan Admission Admit Date/Time: 03/27/22 19:34 Primary Reason for Your Visit: Atypical chest pain Attending Provider: Kenton Gilbert Primary Care Provider: Jose Antonio Dalton Consulting Providers: Lucina Salmon Instructions Additional Instructions / Restrictions: Follow-up [facility], cardiothoracic surgeon as scheduled. Discharge Orders/Prescriptions Prescriptions: New acetaminophen [Tylenol] 325 mg Tablet 650 mg PO Q4H PRN PRN (Reason: Fever, pain 1-10) Qty: 0 0RF sennosides-docusate sodium [Stool Softener-Stimulant Laxat] 8.6-50 mg Tablet 2 tab PO BID PRN PRN (Reason: Constipation) Qty: 0 0RF nitroglycerin 0.4 mg Tablet, Sublingual 0.4 mg sublingual Q5M PRN (Reason: Cardiac/Chest Pain) Qty: 0 0RF insulin lispro [Humalog KwikPen Insulin] 100 unit/mL Insulin Pen See Protocol subcut ACHS Qty: 0 0RF Protocol: 3. Sliding Scale Insulin Med Dosing Condition: 150-189 mg/dl = 1 unit Condition: 190-229 mg/dl = 2 units Condition: 230-269 mg/dl = 3 units Condition: 270-309 mg/dl = 4 units Condition: 310-349 mg/dl = 5 units Condition: 350-399 mg/dl = 6 units Condition: 400-449 mg/dl = 7 units Condition: Greater than 449 call physician Protocol Text: - Use for Total Daily Dose of Insulin 37-55 units - Obsese, infected, or steroid patients MEDIUM DOSING ALGORITHIM cefadroxil 500 mg capsule 500 mg PO BID Qty: 10 0RF Continued atorvastatin 40 MG tablet 40 mg PO DAILY multivitamin with minerals 1 EACH tablet 1 tab PO DAILY omega 8-uty-edt-fish oil 500 MG capsule,delayed release(DR/EC) 500 mg PO DAILY pantoprazole 20 mg Tablet,Delayed Release (Dr/Ec) 20 mg PO DAILY metoprolol tartrate 50 mg Tablet 50 mg PO Q8H aspirin 81 mg Tablet 81 mg PO DAILY Eliquis 5 mg Tablet 5 mg PO BID oxycodone 5 mg Tablet 5 mg PO Q6H PRN (Reason: pain) Held furosemide [Lasix] 40 mg Tablet 40 mg PO BID Hold Instructions: Hold for 5 days and decide after repeat BMP Rx Instructions: Take one(1) tablet two(2) times daily form 03/25-03/28, Then Take one(1) tablet daily. Discontinued metformin 500 MG tablet 1,500 mg PO DAILY Referrals / Follow Up: Jose Antonio Dalton DO [Primary Care Provider] - Within 1 Week Disposition Disposition (needs filled in before D/C Order can be placed): [facility] Facility
--- NOTE | 2022-03-28 16:16 | PCM.DC.SUM ---
Providers Date of Admission: 03/27/22 Date of Discharge: 03/28/22 Primary Care Physician: Dr. Jose Antonio Dalton DO Reason For Visit: MONTRELL, CHEST PAIN Diagnosis Discharge Diagnosis (1) Chest pain: Status: Acute Code(s): R07.9 - Chest pain, unspecified (2) MONTRELL (acute kidney injury): Status: Acute Code(s): N17.9 - Acute kidney failure, unspecified Medications at Discharge Home Medications atorvastatin 40 mg tablet 40 mg PO DAILY 07/03/19 multivitamin with minerals 1 tab PO DAILY 07/03/19 omega 3-dha 60 mg-epa 90 mg-fish oil 500 mg capsule, delayed release 500 mg PO DAILY 07/03/19 apixaban 5 mg tablet (Eliquis) 5 mg PO BID 03/27/22 aspirin 81 mg tablet 81 mg PO DAILY 03/27/22 furosemide 40 mg tablet (Lasix) 40 mg PO BID 03/27/22 metoprolol tartrate 50 mg tablet 50 mg PO Q8H 03/27/22 oxycodone 5 mg tablet 5 mg PO Q6H PRN pain 03/27/22 pantoprazole 20 mg tablet,delayed release 20 mg PO DAILY 03/27/22 acetaminophen 325 mg tablet (Tylenol) 650 mg PO Q4H PRN PRN Fever, pain 1-10 #0 tabs 03/28/22 cefadroxil 500 mg capsule 500 mg PO BID #10 caps 03/28/22 insulin lispro 100 unit/mL subcutaneous pen (Humalog KwikPen (U-100) Insulin) See Protocol subcut ACHS #0 mL 03/28/22 nitroglycerin 0.4 mg sublingual tablet 0.4 mg sublingual Q5M PRN Cardiac/Chest Pain #0 tabs 03/28/22 sennosides 8.6 mg-docusate sodium 50 mg tablet (Stool Softener-Stimulant Laxative) 2 tab PO BID PRN PRN Constipation #0 tabs 03/28/22 Hospital Course Summary of Care Provided Hospital Course: The patient is a 66 y/o F was admitted for chest pain after two-vessel CABG and bioprosthetic aortic valve replacement in [facility] on 03/17/2022. Her chest pain was more left-sided with radiation to shoulder and neck associated with mild shortness of breath for last few days. #1.? Atypical chest pain most probably musculoskeletal:ED physician, Dr.? Staley discussed with Dr. Alejo Jama, cardiothoracic surgery at [facility] who agrees that the troponin leak is likely from her recent surgery and does not think any acute intervention is needed on their hand. The patient was comfortable getting admitted here therefore admitted in PCU. ED physician also discussed with our physical integration practitioner Dr. Rojas said no cardiology intervention or consult needed. Chest pain resolved in the morning and patient feels back to the baseline. Serial troponin 218, 1 8 and 210, trending down. Chest x-ray no acute cardiopulmonary finding. 2. Paroxysmal A. fib with RVR: Patient had RVR initially in ED got improved and controlled in the ED itself. Currently sinus rhythm. Continue beta-monserrat metoprolol 50 mg every 8 hour. Continue Eliquis 5 mg twice daily. 3.? Acute kidney injury on CKD stage IIIb: MONTRELL most likely prerenal. Admission BUN/Cr 49/2.10, 03/25/2022 labs performed per [facility] with BUN/creatinine 35/1.38 and 03/19/2022 BUN/creatinine 18/1.37. Subsequent BUN/creatinine improving. Hold nephrotoxic medications including diuretic Lasix. UA shows WBC 10-25 cells, squamous 10-25 cells. Patient does not have burning micturition increased urgency but had increased frequency due to diuretic. No urine culture therefore ordered. Empirically continue antibiotic cefadroxil until urine culture reported. I suspect patient has colonization/bacteriuria therefore no UTI 4. Valvular heart disease: Status post recent AVR (#23 CE) during also CABG x 2 (LAD-MENDEZ,PLB-SVG) as noted. From review of outside records, patient Preop LVEF: 67% RVF: Normal. Trace to 1+MR. Trace TR. Severe pkmn grad 48/28 mmHg. SAVAGE 0.62 cm2 and postop LVEF: Normal RVF: Normal. #5.? Hypertension: Continue home regimen including metoprolol, hold Lasix. Blood pressures controlled #6.? Hyperlipidemia: Continue home statin regimen. #7.? Obesity: Weight loss and lifestyle changes encouraged. #8.? Diabetes mellitus type II: Metformin discontinued. Accu-Cheks and coverage and sliding scale #9.? DVT prophylaxis: SCDs, continue patient home Eliquis regimen. Patient was admitted as inpatient for elevated troponin and chest pain but acute coronary syndrome ruled out. Probably patient is elevated troponin after CABG surgery. Chest pain got resolved. Non-STEMI/STEMI ruled out. Patient further cleared by physical integration practitioner and [facility] cardiothoracic surgeon therefore discharged to SNF. Chest pain and shortness of breath resolved and patient has sooner recovery than expected at time of admission. Discharge medication reconciliation done. Discharge follow-up instructions completed. Discharge process discussed with the patient and all questions were answered to patient's satisfaction. Total time spent, exact 35 minutes on discharge meds reconciliation, examination, coordination of care with nurses and ancillary staff, review of imaging and blood test and discussion with the patient on follow-up instructions. Physical Exam Narrative General: Alert, Oriented x3, Cooperative HEENT: Atraumatic, PERRLA, EOMI, Normocephalic Oral: No Gingival or Mucosal Lesions/ Ulcerations Neck: Supple, No JVD, Negative Carotid Bruits Lungs: Air entry diminished in bilateral lung bases. No crepitation/rhonchi Cardiovascular: Healing sternal CABG scar. Healthy, no purulent discharge. Sinus rhythm 70 bpm. S1-S2 regular, subtle systolic murmur Abdomen: Bowel Sounds Present, Soft, Non Tender, Non-Distended : No renal angle tenderness. No suprapubic tenderness. Extremities: No edema, Capillary Refill Less than 3 Seconds Skin: No rashes, No breakdown Musculoskeletal: No Tenderness to Palpation of Joints or Extremities Neurological: Cranial nerves II-XII grossly intact, DTR 2+/4 and Symmetrical, Neuro grossly intact Psych/Mental Status: Normal Affect, Appropriate. Weight / BMI Weight Weight: 166 lb 3.657 oz Body Mass Index (BMI) 27.6 ABG / Lab / Microbiology Data Result Diagrams: 03/28/22 05:02 03/28/22 05:02 Laboratory: Laboratory Results - last 24 hr 03/27/22 16:35: Troponin I High Sens 208 H* 03/27/22 20:40: Troponin I High Sens 210 H* 03/27/22 21:11: POC Glucose 149 H 03/28/22 05:02: WBC 8.4, RBC 3.06 L, Hgb 9.8 L, Hct 29.8 L, MCV 97.4, MCH 32.0, MCHC 32.9, RDW Std Deviation 46.1 H, RDW Coeff of Abby 13.0, Plt Count 297, MPV 9.4, Immature Gran % (Auto) 0.500, Neut % (Auto) 56.8, Lymph % (Auto) 28.7, [place] % (Auto) 9.3, Eos % (Auto) 3.9, Baso % (Auto) 0.8, Absolute Neuts (auto) 4.8, Absolute Lymphs (auto) 2.40, Nucleated RBC % 0 03/28/22 05:02: Sodium 140, Potassium 4.1, Chloride 106, Carbon Dioxide 26.0, Anion Gap 8, BUN 38 H, Creatinine 1.66 H, Estim Creat Clear Calc 29.19, Est GFR (MDRD) Af Amer 39 L, Est GFR (MDRD) Non-Af 33 L, BUN/Creatinine Ratio 22.9 H, Glucose 154 H, Calcium 8.8, Total Bilirubin 0.60, AST 14 L, ALT 23, Alkaline Phosphatase 74, Total Protein 6.4, Albumin 3.3, Globulin 3.1, Albumin/Globulin Ratio 1.1 03/28/22 05:10: Ur Random Sodium 49 03/28/22 05:10: Urine Color Yellow, Urine Clarity Clear, Urine pH 6.0, Ur Specific [place] 1.010, Urine Protein Negative, Urine Glucose (UA) Normal, Urine Ketones Negative, Urine Occult Blood Negative, Urine Nitrite Negative, Urine Bilirubin Negative, Urine Urobilinogen Normal, Ur Leukocyte Esterase 500 H, Urine RBC 0 SEEN, Urine WBC 10-25 SEEN, Ur Squamous Epith Cells 10-25 SEEN, Ur Renal Epithelial Cell 0-5 SEEN, Urine Bacteria 3+, Urine Mucus 0 SEEN 03/28/22 05:10: Urine Creatinine 76.60 03/28/22 06:31: POC Glucose 151 H 03/28/22 11:45: POC Glucose 213 H Meaningful Use Info Meaningful Use Diagnoses (Choose all that apply): None applicable Discharge Plan Admission Admit Date/Time: 03/27/22 19:34 Primary Reason for Your Visit: Atypical chest pain Attending Provider: Kenton Gilbert Primary Care Provider: Jose Antonio Dalton Consulting Providers: Lucina Salmon Instructions Additional Instructions / Restrictions: Follow-up [facility], cardiothoracic surgeon as scheduled. Discharge Orders/Prescriptions Prescriptions: New acetaminophen [Tylenol] 325 mg Tablet 650 mg PO Q4H PRN PRN (Reason: Fever, pain 1-10) Qty: 0 0RF sennosides-docusate sodium [Stool Softener-Stimulant Laxat] 8.6-50 mg Tablet 2 tab PO BID PRN PRN (Reason: Constipation) Qty: 0 0RF nitroglycerin 0.4 mg Tablet, Sublingual 0.4 mg sublingual Q5M PRN (Reason: Cardiac/Chest Pain) Qty: 0 0RF insulin lispro [Humalog KwikPen Insulin] 100 unit/mL Insulin Pen See Protocol subcut ACHS Qty: 0 0RF Protocol: 3. Sliding Scale Insulin Med Dosing Condition: 150-189 mg/dl = 1 unit Condition: 190-229 mg/dl = 2 units Condition: 230-269 mg/dl = 3 units Condition: 270-309 mg/dl = 4 units Condition: 310-349 mg/dl = 5 units Condition: 350-399 mg/dl = 6 units Condition: 400-449 mg/dl = 7 units Condition: Greater than 449 call physician Protocol Text: - Use for Total Daily Dose of Insulin 37-55 units - Obsese, infected, or steroid patients MEDIUM DOSING ALGORITHIM cefadroxil 500 mg capsule 500 mg PO BID Qty: 10 0RF Continued atorvastatin 40 MG tablet 40 mg PO DAILY multivitamin with minerals 1 EACH tablet 1 tab PO DAILY omega 9-fru-wnw-fish oil 500 MG capsule,delayed release(DR/EC) 500 mg PO DAILY pantoprazole 20 mg Tablet,Delayed Release (Dr/Ec) 20 mg PO DAILY metoprolol tartrate 50 mg Tablet 50 mg PO Q8H aspirin 81 mg Tablet 81 mg PO DAILY Eliquis 5 mg Tablet 5 mg PO BID oxycodone 5 mg Tablet 5 mg PO Q6H PRN (Reason: pain) Held furosemide [Lasix] 40 mg Tablet 40 mg PO BID Hold Instructions: Hold for 5 days and decide after repeat BMP Rx Instructions: Take one(1) tablet two(2) times daily form 03/25-03/28, Then Take one(1) tablet daily. Discontinued metformin 500 MG tablet 1,500 mg PO DAILY Referrals / Follow Up: Jose Antonio Dalton DO [Primary Care Provider] - Within 1 Week Disposition Disposition (needs filled in before D/C Order can be placed): Long-Term Facility Charges/Coding Visit Charges Inpatient E&M: 75418 Disch Hosp
[2022-03-28 16:51] LABS: Bedside Glucose 141 mg/dL (74-106)
--- NOTE | 2022-03-28 18:42 | NURSING ---
This RN called and gave report to YOUSIF Costello on TCU.
== END 2022-03-28 18:58 | disposition skilled nursing facility (03) | DRG 313 ==
LOC: ED 19:40 → PCU 19:47
PROVIDERS: Admitting Provider Family Medicine; Emergency Provider Emergency Medicine; PCP Student in an Organized Health Care Education/Training Program; Visit Provider Internal Medicine
DX: R07.89 Other chest pain (principal); N17.9 Acute kidney failure, unspecified; E11.22 Type 2 diabetes mellitus with diabetic chronic kidney disease; I48.0 Paroxysmal atrial fibrillation; N18.32 Chronic kidney disease, stage 3b; E78.5 Hyperlipidemia, unspecified; I35.0 Nonrheumatic aortic (valve) stenosis; I12.9 Hypertensive chronic kidney disease with stage 1 through stage 4 chronic kidney disease, or unspecified chronic kidney disease; I25.10 Atherosclerotic heart disease of native coronary artery without angina pectoris; R77.8 Other specified abnormalities of plasma proteins; E66.9 Obesity, unspecified; Z68.27 Body mass index [BMI] 27.0-27.9, adult; Z95.1 Presence of aortocoronary bypass graft; Z95.3 Presence of xenogenic heart valve; Z79.01 Long term (current) use of anticoagulants; Z79.82 Long term (current) use of aspirin; Z79.84 Long term (current) use of oral hypoglycemic drugs; Z79.899 Other long term (current) drug therapy; Z82.49 Family history of ischemic heart disease and other diseases of the circulatory system
CPT/HCPCS: 36415; 71045; 80048; 80053; 81001; 82570; 82962; 83735; 83880; 84300; 84484; 85025; 87086; 87088; 93005; 97162; 97165; 97802; 99285; J7030; A4216

== ENCOUNTER 2022-03-28 19:40 | Inpatient (IN) | payer MEDICARE, OTHER, SELFPAY ==
[2022-03-28 21:26] LABS: Bedside Glucose 163 mg/dL (74-106)
--- NOTE | 2022-03-28 21:31 | HP.PCM_ITS ---
HPI - General General Date of Admission: 03/28/22 Date of Service: 03/30/22 Chief Complaint: Here for rehab. HPI Narrative ADRI DELVALLE, is a 66 Female who presents with followin03/17/2022 [facility] performed aortic valve repair, CABG x 2, postoperative course complicated by atrial fibrillation, started on Eliquis. 03/25/2022 Discharged to [facility] for rehabilitation. 03/27/2022 Patient presented to [facility] Emergency Department with chest pain. Chest pain, pulsing, radiating to left hand, shoulder blade, arm. Feels different from postoperatvie pain. Pain started today, while in shower, stabbing pain, now dull pain. Mild shortness of breath x few days, pain pill not helpful. Hemoglobin 11.8, Creatinine 2.10. Aspirin, Morphine given. IV fluids resolved tachycardia. Troponin 208, related to recent cardiac surgery. 03/27/2022 Admit to Hospital. Chest pain secondary to sternotomy. IV fluids for acute kidney injury secondary to dehydration. 03/28/2022 Urine culture, Cefadroxil, for dysuria. 03/28/2022 Admit to TCU with debility, here for rehabilitation, strengthening, prior to discharge home with . [facility] Medical History CAD (coronary artery disease) Diabetes mellitus, type 2 HLD (hyperlipidemia) HTN (hypertension) Obesity PAF (paroxysmal atrial fibrillation) Valvular heart disease Home Medications atorvastatin 40 mg tablet 40 mg PO DAILY Cholesterol 07/03/19 [History Last Phi en Unknown] multivitamin with minerals 1 tab PO DAILY supplement 07/03/19 [History Last Taken Unknown] omega 3-dha 60 mg-epa 90 mg-fish oil 500 mg capsule, delayed release 500 mg PO DAILY supplement 07/03/19 [History Last Taken Unknown] apixaban 5 mg tablet (Eliquis) 5 mg PO BID blood thinner 03/27/22 [History Last Taken Unknown] aspirin 81 mg tablet 81 mg PO DAILY heart health 03/27/22 [History Last Taken Unknown] furosemide 40 mg tablet (Lasix) 40 mg PO BID fluid 03/27/22 [History Last Taken Unknown] metoprolol tartrate 50 mg tablet 50 mg PO Q8H blood pressure 03/27/22 [History Last Taken Unknown] oxycodone 5 mg tablet 5 mg PO Q6H PRN pain 03/27/22 [History Last Taken Unknown] pantoprazole 20 mg tablet,delayed release 20 mg PO DAILY stomach 03/27/22 [History Last Taken Unknown] acetaminophen 325 mg tablet (Tylenol) 650 mg PO Q4H PRN PRN Fever, pain 1-10 #0 tabs 03/28/22 [Rx Last Taken Unknown] cefadroxil 500 mg capsule 500 mg PO BID Check with primary doctor 03/28/22 [History Last Taken Unknown] insulin lispro 100 unit/mL subcutaneous pen (Humalog KwikPen (U-100) Insulin) See Protocol subcut ACHS diabetic 03/28/22 [History Last Taken Unknown] nitroglycerin 0.4 mg sublingual tablet 0.4 mg sublingual Q5M PRN Cardiac/Chest Pain #0 tabs 03/28/22 [Rx Last Taken Unknown] sennosides 8.6 mg-docusate sodium 50 mg tablet (Stool Softener-Stimulant Laxative) 2 tab PO BID PRN PRN Constipation #0 tabs 03/28/22 [Rx Last Taken Unknown] Allergy/AdvReac Type Severity Reaction Status Date / Time No Known Allergies Allergy Verified 07/03/19 23:21 Family History Mother Hypertension CVA (cerebral vascular accident) Father Myocardial infarction CAD (coronary artery disease) S/P CABG (coronary artery bypass graft) Surgical History History of bilateral tubal ligation S/P AVR (aortic valve replacement) S/P CABG x 2 Social History household members: spouse number of children: 3 current occupational status: retired Smoking Status: Never smoker alcohol intake: current alcohol intake frequency: holidays/special occasions only substance use type: does not use ROS Constitutional Constitutional: Denies chills, fever(s) or weight gain ENT HEENT: Denies headache(s), nasal congestion or nasal discharge Cardiovascular Cardiovascular: Denies chest pain or palpitations Respiratory/Chest Respiratory/Chest: Denies cough, excessive phlegm production or shortness of breath with exertion Gastrointestinal Gastrointestinal: Denies abdominal pain, nausea or vomiting Genitourinary Genitourinary: Denies dysuria Musculoskeletal Musculoskeletal: Denies joint pain or joint swelling Integumentary Integumentary: Denies rash or wounds Neurologic Neurologic: Denies focal weakness, numbness or tingling Psychiatric Psychiatric: Denies anxiety, auditory hallucinations, depression, homicidal ideation or suicidal ideation Physical Exam Const alert General Appearance: cooperative HEENT normocephalic Eyes PERRL and EOMs intact bilaterally Neck supple, no JVD and no carotid bruits Chest Chest Narrative: Midline incision clean, dry, intract. Resp normal respiratory effort, normal air movement and clear to auscultation bilaterally Cardio regular rate and regular rhythm GI normal to inspection, nondistended, normoactive bowel sounds, non-tender and non-distended Extremity normal capillary refill General Extremity: Negative for edema Skin no rashes or lesions noted General Skin Exam: no breakdown Psych affect normal Appearance: appropriate Results Lab / Micro Data Result Diagrams: 03/29/22 06:41 03/29/22 06:41 Labs: Laboratory Results - last 24 hr 03/28/22 21:06: POC Glucose 163 H Assessment & Plan Assessment/Plan (1) Debility: (2) MONTRELL (acute kidney injury): (3) Dehydration: (4) Chest pain: (5) S/P CABG x 2: (6) Status post aortic valve repair: (7) Coronary artery disease: (8) Aortic stenosis: (9) Atrial fibrillation: (10) Diabetes mellitus: (11) Hypertension: (12) Hyperlipidemia: (13) Edema: (14) Gastroesophageal reflux disease: PLAN: Plan 66 year old female with below past medical history hospitalized for chest pain, acute kidney injury, dehydration, admitted to TCU with debility, here for rehabilitation, strengthening, prior to discharge home with . * Debility - PT/OT. * Pain - Tylenol 1000mg q6h prn pain (1-3), Oxycodone 5mg q4h prn pain (4-10). * Bowel - senna/colace 2 tablets bid, MOM 30ml daily prn. * Adult immunization - Administer pneumonia vaccine, covid19 vaccine, flu vaccine as appropriate. * DVT prophylaxis - Not necessary, already on Eliquis. * Atrial fibrillation - Metoprolol 50mg q8h, Eliquis 5mg bid. * Coronary artery disease status post CABG x 2 - Metoprolol 50mg q8h, aspirin 81mg daily, NTG 0.4mg sl q5m prn. * Hyperlipidemia - Atorvastatin 40mg qhs, [place] 3 500mg daily. * Urinary tract infection - Cefadroxil 500mg bid x 7 days, stop if urine culture negative. * Diabetes Mellitus II - Monitor, add insulin as necessary. * Nutrition - MVI daily. * GERD - Pantoprazole 20mg daily.
[2022-03-28 22:49] VITALS: BP 124/66; PULSE 74
[2022-03-28] MEDS: Atorvastatin Calcium 40 MG Tablet PO (22:49)
[2022-03-28] MEDS: Metoprolol Tartrate 50 MG Tablet PO (22:49)
[2022-03-28] MEDS: oxyCODONE 5 MG Tablet PO (22:52)
[2022-03-28 23:00] VITALS: BP 124/66; PULSE 74; TEMP 37.1; O2SAT 93; BMI 29.1
[2022-03-29] MEDS: Cefadroxil 500 MG CAPSULE PO ×2 (06:34→16:48)
[2022-03-29] MEDS: Pantoprazole Sodium 20 MG Tablet PO (06:34)
[2022-03-29] MEDS: APIXABAN 5 MG TABLET PO ×2 (06:34→16:49)
[2022-03-29] MEDS: Nystatin Powder 15gm Bottle 1 APPLIC TOPICAL ×2 (06:34→16:49)
[2022-03-29] MEDS: Senna/Docusate Sodium 1 Tablet 2 TABLET PO ×2 (06:34→16:49)
[2022-03-29 06:35] VITALS: BP 128/64; PULSE 70
[2022-03-29] MEDS: Metoprolol Tartrate 50 MG Tablet PO ×3 (06:35→21:20)
[2022-03-29] MEDS: oxyCODONE 5 MG Tablet PO ×3 (06:38→21:21)
[2022-03-29 06:41] LABS: Bedside Glucose 140 mg/dL (74-106)
[2022-03-29 07:04] LABS: Absolute Lymphocyte Count 2.15 X10^3/uL (0.83-4.51); Absolute Neutrophil Count 4.4 X10^3/uL (2.0-7.7); Basophil# 0.06 X10^3/uL; Basophil% 0.8 % (0-1); Eosinophil# 0.34 X10^3/uL; Eosinophils% 4.5 % (0-5); Hematocrit 28.6 % (37-47); Hemoglobin 9.2 g/dL (12.0-15.0); Lymphocyte # 2.15 X10^3/ul (0.83-4.51); Lymphocyte % 28.4 % (19-41); Mean Corp Hgb Conc 32.2 g/dL (32-36); Mean Corpuscular Hgb 31.8 pg (27.0-32.0); Mean Platelet Vol. 9.1 fl (6.2-12.0); Monocyte# 0.54 X10^3/uL; Monocyte% 7.1 % (0-10); NRBC Flagged by Analyzer 0 % (0-5); Neutrophil # 4.44 X10^3/uL (2.7-7.7); Neutrophil % 58.7 % (47-70); Platelet Count 289 K/mm3 (150-450); RBC Distribution Width CV 12.9 % (11.6-14.6); RBC Distribution Width SD 46.5 fl (35.1-43.9); Red Blood Count 2.89 M/mm3 (4.2-5.4); White Blood Count 7.6 K/mm3 (4.4-11.0)
[2022-03-29 07:19] LABS: Anion Gap 8 (5-15); BUN 27 mg/dL (7-18); BUN/Creat Ratio 19.4 RATIO (10-20); Calcium,Total 9.2 mg/dL (8.5-10.1); Chloride 107 mmol/L (98-107); Creatinine, Serum 1.39 mg/dL (0.55-1.02); EST Glomerular Filtration Rate 40 mL/min (>60); Est Glom Filt Rate - Afr Amer 48 mL/min (>60); Estimated Creatinine Clearance 34.86 ml/min; Glucose 146 mg/dL (74-106); Sodium Level 140 mmol/L (136-145)
[2022-03-29] MEDS: Aspirin 81 MG TAB.CHEW PO (08:56)
[2022-03-29] MEDS: Multivitamins,Ther W-Minerals Tablet 1 TABLET PO (08:56)
--- NOTE | 2022-03-29 09:15 | NURSING ---
PT STATES SHE JUST RECEIVED THE TB INITIAL TEST AT [facility] TWO DAYS AGO. THIS RN SPOKE WITH NURSE MELCHOR AT THE [facility]. SHE STATES SHE WILL LOOK FOR THE PTS RECORDS AND FAX THEM TO TCU.
[2022-03-29 11:30] LABS: Bedside Glucose 202 mg/dL (74-106)
--- NOTE | 2022-03-29 11:51 | NURSING ---
[facility] RECIEVED [facility] STAT[facility] PT RECEIVED TB TEST ON 03/26/22. FAX LABELED WITH PTS STICKER AND PLACED IN PTS CHART. COMMUNICATION SENT TO PHARMACY TO SCHEDULE SECOND TEST FOR 04/02/22.
[2022-03-29 13:35] VITALS: BP 116/60; PULSE 70
[2022-03-29 15:15] VITALS: BP 116/60; PULSE 70; RESP 16; TEMP 36.3; O2SAT 95
[2022-03-29 17:20] LABS: Bedside Glucose 202 mg/dL (74-106)
[2022-03-29 21:20] VITALS: BP 121/61; PULSE 75
[2022-03-29] MEDS: Atorvastatin Calcium 40 MG Tablet PO (21:20)
[2022-03-29] MEDS: Acetaminophen 500 MG Tablet 1000 MG PO (21:21)
[2022-03-29 21:50] LABS: Bedside Glucose 213 mg/dL (74-106)
[2022-03-30] MEDS: Acetaminophen 500 MG Tablet 1000 MG PO ×2 (06:00→15:01)
[2022-03-30 06:01] VITALS: BP 112/65; PULSE 73
[2022-03-30] MEDS: Metoprolol Tartrate 50 MG Tablet PO ×3 (06:01→21:30)
[2022-03-30] MEDS: APIXABAN 5 MG TABLET PO ×2 (06:01→17:28)
[2022-03-30] MEDS: Senna/Docusate Sodium 1 Tablet 2 TABLET PO ×2 (06:01→17:28)
[2022-03-30] MEDS: Pantoprazole Sodium 20 MG Tablet PO (06:02)
[2022-03-30] MEDS: Cefadroxil 500 MG CAPSULE PO ×2 (06:02→17:28)
[2022-03-30] MEDS: Nystatin Powder 15gm Bottle 1 APPLIC TOPICAL ×2 (06:02→21:29)
[2022-03-30 06:35] LABS: Bedside Glucose 156 mg/dL (74-106)
[2022-03-30] MEDS: Aspirin 81 MG TAB.CHEW PO (08:09)
[2022-03-30] MEDS: Multivitamins,Ther W-Minerals Tablet 1 TABLET PO (08:09)
[2022-03-30 11:50] LABS: Bedside Glucose 218 mg/dL (74-106)
--- NOTE | 2022-03-30 12:16 | NURSING ---
Health Physics Technician Note; Activity Asst; Complete, Activity
--- NOTE | 2022-03-30 12:26 | PHA.CONS_ITS ---
TCU RX Drug Regimen Review Subjective: TCU Admission. 66 YOF went on 03/17/22 to [facility] Main campus for aortic valve repair, CABG x 2, postoperative course complicated by atrial fibrillation, started on Eliquis, [facility]25[facility] for rehabilitation. Then presented to the ER 03/27/22 with chest pain and admitted to the hospital for chest pain secondary to sternotomy. Admitted to TCU with debility for strengthening and rehabilitation. Objective: Allergies No Known Allergies Allergy (Verified 07/03/19 23:21) Current Medications Generic Name Dose Route Start Last Admin Trade Name Freq PRN Reason Stop Dose Admin Acetaminophen 1,000 mg 03/28/22 21:58 03/30/22 06:00 Acetaminophen 500 Mg Tablet PO 1,000 mg Q6H PRN PRN Administration Pain Score 1-3 Apixaban 5 mg 03/29/22 06:00 03/30/22 06:01 Apixaban 5 Mg Tablet PO 5 mg BID REN Administration Aspirin 81 mg 03/29/22 08:00 03/30/22 08:09 Aspirin 81 Mg Tab.Chew PO 81 mg BREAKFAST REN Administration Atorvastatin Calcium 40 mg 03/28/22 22:00 03/29/22 21:20 Atorvastatin Calcium 40 Mg Tablet PO 40 mg QHS REN Administration Cefadroxil 500 mg 03/29/22 06:00 03/30/22 06:02 Cefadroxil 500 Mg Capsule PO 04/05/22 06:01 500 mg BID REN Administration Magnesium Hydroxide 30 ml 03/28/22 21:57 Magnesium Hydroxide 30 Ml Udc PO DAILY PRN CONSTIPATION Metoprolol Tartrate 50 mg 03/28/22 22:00 03/30/22 06:01 Metoprolol Tartrate 50 Mg Tablet PO 50 mg Q8 REN Administration Multivitamins/Minerals 1 tablet 03/29/22 08:00 03/30/22 08:09 Multivitamins,Ther W-Minerals Tablet PO 1 tablet DAILYCM REN Administration Nitroglycerin 0.4 mg 03/28/22 20:55 Nitroglycerin (Inpatient Use) 0.4 Mg Tab.Subl SL Q5M PRN CARDIAC/CHEST PAIN Nystatin 1 applic 03/29/22 06:00 03/30/22 06:02 Nystatin Powder 15gm Bottle TOPICAL 1 applic BID REN Administration Protocol Oxycodone HCl 5 mg 03/28/22 21:58 03/29/22 21:21 Oxycodone 5 Mg Tablet PO 5 mg Q4H PRN PRN Administration Pain Score 4-10 Pantoprazole Sodium 20 mg 03/29/22 06:00 03/30/22 06:02 Pantoprazole Sodium 20 Mg Tablet PO 20 mg DAILY REN Administration Senna/Docusate Sodium 2 tablet 03/29/22 06:00 03/30/22 06:01 Senna/Docusate Sodium 1 Tablet PO 2 tablet BID REN Administration Sodium Chloride 10 - 40 ml 03/29/22 00:14 0.9% Saline Lock 10 Ml Syringe IV UD PRN SALINE FLUSH Tuberculin PPD 0.1 ml 04/02/22 10:00 Tuberculin,Purif.Prot.Deriv. 50 Tu/Ml Vial ID 04/02/22 10:01 X1 ONE Problem List (Last Reviewed 03/28/22 @ 21:[address] Eddie Sanchez MD) Gastroesophageal reflux disease (Acute) Edema (Acute) Hyperlipidemia (Acute) Hypertension (Chronic) Diabetes mellitus (Acute) Atrial fibrillation (Acute) Aortic stenosis (Acute) Coronary artery disease (Acute) Status post aortic valve repair (Acute) Dehydration (Acute) Debility (Acute) S/P CABG x 2 (Acute) MONTRELL (acute kidney injury) (Acute) Chest pain (Acute) Vital Signs Temp Pulse Resp BP Pulse Ox O2 Del Method 97.4 F L 73 16 112/65 95 Room Air 03/29/22 15:15 03/30/22 06:01 03/29/22 15:15 03/30/22 06:01 03/29/22 15:15 03/29/22 21:25 Oxygen Delivery Method Room Air Weight: 79.379 kg Body Mass Index (BMI) 29.1 Sodium 140 mmol/L (136-145) 03/29/22 06:41 Potassium 4.0 mmol/L (3.5-5.1) 03/29/22 06:41 Chloride 107 mmol/L (98-107) 03/29/22 06:41 Carbon Dioxide 25.0 mmol/L (21.0-32.0) 03/29/22 06:41 Anion Gap 8 (5-15) 03/29/22 06:41 BUN 27 mg/dL (7-18) H 03/29/22 06:41 Creatinine 1.39 mg/dL (0.55-1.02) H 03/29/22 06:41 Est GFR (MDRD) Af Amer 48 mL/min (>60) L 03/29/22 06:41 Est GFR (MDRD) Non-Af 40 mL/min (>60) L 03/29/22 06:41 BUN/Creatinine Ratio 19.4 RATIO (10-20) 03/29/22 06:41 Glucose 146 mg/dL (74-106) H 03/29/22 06:41 Assessment/Plan: 1. Pain: acetaminophen 1000mg PO Q6H PRN pain 1-3 and oxycodone 5mg PO Q4H PRN pain 4-10. Resident has received 2 doses of acetaminophen (pain 4 and 6, chest/incision) and 4 doses of oxycodone (pain 5 and 6, chest/incision). Please continue to monitor for increased pain, PRN usage, constipation and respiratory depression. No documented bowel movement. 2. Bowel: senna/docusate 2T PO BID and MOM 30mL PO daily PRN constipation. Please continue to monitor for constipation and PRN usage. Resident has not had any doses of MOM and has not had a documented bowel movement. 3. CAD/atrial fibrillation: metoprolol tartrate 50mg PO Q8, aspirin 81mg PO daily, apixaban 5mg PO BID and nitroglycerin 0.4mg SL Q5M prn chest pain. Please continue to monitor BP (last 112/65), HR (last 73), S/S of bleeding, hemoglobin (last 9.2g/dL), chest pain and PRN usage. Resident has not had any nitroglycerin. 4. UTI: cefadroxil 500mg PO BID thru 04/05/22. Please continue to monitor for S/S of infection, urine culture (mixed organisms), renal function and diarrhea. 5. Hyperlipidemia: atorvastatin 40mg PO QHS. Please consider ordering a lipid panel if clinically appropriate. Resident does not have one in the chart. Thanks. Please continue to monitor LFTs (last 03/28/22) and muscle pain. 6. Nutrition: multivitamin with minerals 1T DAILYCM. Please continue to monitor. 7. GERD: pantoprazole 20mg PO daily. Please continue to monitor for S/S of GERD and diarrhea. This medication is on the BEER list due to increased quin of C. diff infection, falls/fractures due to bone loss. Assessment/Plan for indications treated with psychotropic medications: None Medical chart and medication regimen reviewed. The following medication irregularities or issues were identified: *1. Atorvastatin 40mg PO QHS. Please consider ordering a lipid panel if clinically appropriate. Resident does not have one in the chart. Thanks. Date of Note:: 03/30/22
[2022-03-30 14:46] VITALS: BP 108/61; PULSE 82; RESP 18; TEMP 36.1; O2SAT 98
[2022-03-30 14:55] VITALS: PULSE 82
--- NOTE | 2022-03-30 15:51 | CASEMGMT ---
Social Work Met with patient to complete initial assessment. Introduced self and role. and dtr present. Pt granted permission to complete assessment with family present. Discussed code status and MOLST form. Educated to Medicare benefit. Pt requesting to discharge home tomorrow. dtr agree pt is ready to DC. can assist with any needs and dtr is from [place] of [place] to assist. Educated to benefits of continued stay but pt still requesting to discharge. stated [facility] was ordered prior and would agree to use them at DC. However, pt stated surgeon did not recommend continued PT/OT until [t rests and recovers. Pt only wants a SN for HHC. SW agreed to order. No DME needs. to transport. SW made referral via [facility] to [facility] SN. Plan: DC home with 03/31, [facility] SN TENZIN ArevaloW
--- NOTE | 2022-03-30 15:58 | CASEMGMT ---
Social Work BIMS () and PHQ- (09/14) completed for MDS assessment. Kourtney Loo MSW PROPAGATION WORKER
--- NOTE | 2022-03-30 18:22 | PCM.DC.SUM ---
Providers Date of Admission: 03/28/22 Primary Care Physician: Dr. Jose Antonio Dalton DO Reason For Visit: DEHYDRATION Diagnosis Discharge Diagnosis (1) Debility: Status: Acute Code(s): R53.81 - Other malaise (2) MONTRELL (acute kidney injury): Status: Acute Code(s): N17.9 - Acute kidney failure, unspecified (3) Dehydration: Status: Acute Code(s): E86.0 - Dehydration (4) Chest pain: Status: Acute Code(s): R07.9 - Chest pain, unspecified (5) S/P CABG x 2: Status: Acute Code(s): Z95.1 - Presence of aortocoronary bypass graft (6) Status post aortic valve repair: Status: Acute Code(s): Z98.890 - Other specified postprocedural states (7) Coronary artery disease: Status: Acute Code(s): I25.10 - Atherosclerotic heart disease of [place] coronary artery without angina pectoris (8) Aortic stenosis: Status: Acute Code(s): I35.0 - Nonrheumatic aortic (valve) stenosis (9) Atrial fibrillation: Status: Acute Code(s): I48.91 - Unspecified atrial fibrillation (10) Diabetes mellitus: Status: Acute Code(s): E11.9 - Type 2 diabetes mellitus without complications (11) Hypertension: Status: Chronic Code(s): I10 - Essential (primary) hypertension (12) Hyperlipidemia: Status: Acute Code(s): E78.5 - Hyperlipidemia, unspecified (13) Edema: Status: Acute Code(s): R60.9 - Edema, unspecified (14) Gastroesophageal reflux disease: Status: Acute Code(s): K21.9 - Gastro-esophageal reflux disease without esophagitis Plan 66 year old female with below past medical history hospitalized for chest pain, acute kidney injury, dehydration, admitted to TCU with debility, here for rehabilitation, strengthening, prior to discharge home with . Debility - PT/OT. Pain - Tylenol 1000mg q6h prn pain (1-3), Oxycodone 5mg q4h prn pain (4-10). Bowel - senna/colace 2 tablets bid, MOM 30ml daily prn. Adult immunization - Administer pneumonia vaccine, covid19 vaccine, flu vaccine as appropriate. DVT prophylaxis - Not necessary, already on Eliquis. Atrial fibrillation - Metoprolol 50mg q8h, Eliquis 5mg bid. Coronary artery disease status post CABG x 2 - Metoprolol 50mg q8h, aspirin 81mg daily, NTG 0.4mg sl q5m prn. Hyperlipidemia - Atorvastatin 40mg qhs, [place] 3 500mg daily. Urinary tract infection - Cefadroxil 500mg bid x 7 days, stop if urine culture negative. Diabetes Mellitus II - Monitor, add insulin as necessary. Nutrition - MVI daily. GERD - Pantoprazole 20mg daily. Medications at Discharge Home Medications atorvastatin 40 mg tablet 40 mg PO DAILY Cholesterol 07/03/19 multivitamin with minerals 1 tab PO DAILY supplement 07/03/19 omega 3-dha 60 mg-epa 90 mg-fish oil 500 mg capsule, delayed release 500 mg PO DAILY supplement 07/03/19 apixaban 5 mg tablet (Eliquis) 5 mg PO BID blood thinner 03/27/22 aspirin 81 mg tablet 81 mg PO DAILY heart health 03/27/22 metoprolol tartrate 50 mg tablet 50 mg PO Q8H blood pressure 03/27/22 pantoprazole 20 mg tablet,delayed release 20 mg PO DAILY stomach 03/27/22 nitroglycerin 0.4 mg sublingual tablet 0.4 mg sublingual Q5M PRN Cardiac/Chest Pain #0 tabs 03/28/22 sennosides 8.6 mg-docusate sodium 50 mg tablet (Stool Softener-Stimulant Laxative) 2 tab PO BID PRN PRN Constipation #0 tabs 03/28/22 acetaminophen 500 mg tablet 1,000 mg PO Q6H PRN PRN Pain Score 1-3 #0 tabs 03/30/22 oxycodone 5 mg tablet 5 mg PO Q6H PRN pain 7 days #28 tabs 03/30/22 Hospital Course Operations - (Aortic valve repair, CABG x 2.) Procedures None Summary of Care Provided Minutes Spent on Discharge: 35 Hospital Course: 66 year old female with below past medical history hospitalized for chest pain, acute kidney injury, dehydration, admitted to TCU with debility, here for rehabilitation, strengthening, prior to discharge home with . Discharge home with [facility]/20[facility] . Physical Exam Const alert General Appearance: cooperative HEENT normocephalic Eyes PERRL and EOMs intact bilaterally Neck supple, no JVD and no carotid bruits Resp normal respiratory effort, normal air movement and clear to auscultation bilaterally Cardio regular rate and regular rhythm GI normal to inspection, nondistended, normoactive bowel sounds, non-tender and non-distended Extremity normal capillary refill General Extremity: Negative for edema Skin no rashes or lesions noted General Skin Exam: no breakdown Psych affect normal Appearance: appropriate Weight / BMI Weight Weight: 79.379 kg Body Mass Index (BMI) 29.1 ABG / Lab / Microbiology Data Result Diagrams: 03/29/22 06:41 03/29/22 06:41 Laboratory: Laboratory Results - last 24 hr 03/29/22 21:30: POC Glucose 213 H 03/30/22 06:13: POC Glucose 156 H 03/30/22 11:30: POC Glucose 218 H Microbiology: Microbiology 03/28/22 23:00 Nasal Secretion SARS-CoV-2 Antigen (Rapid) - Final D/C Instructions Discharge Diet: No restrictions Discharge Activity: Return to Normal Activity, May Shower and Use Walker May resume sexual activity in: 6-8 weeks Weight Bearing Status: Weight bearing as tolerated Call your doctor if you observe: Fever of 101 or Higher, Inability to urinate, Inability to have a bowel movement, Shortness of breath, Dizziness, Fainting spells, Swelling in the ankles, Chest pain and Uncontrolled pain Additional Instructions: Discharge home with 03/31/2022, [facility]. Meaningful Use Info Meaningful Use Diagnoses (Choose all that apply): None applicable Discharge Plan Admission Admit Date/Time: 03/28/22 19:40 Primary Reason for Your Visit: Debility. Attending Provider: Eddie Sanchez Chi Primary Care Provider: Jose Antonio Dalton Instructions Additional Instructions / Restrictions: Discharge home with 03/31/2022, [facility]. Discharge Orders/Prescriptions Prescriptions: New acetaminophen 500 mg Tablet 1,000 mg PO Q6H PRN PRN (Reason: Pain Score 1-3) Qty: 0 0RF Continued atorvastatin 40 MG tablet 40 mg PO DAILY multivitamin with minerals 1 EACH tablet 1 tab PO DAILY omega 3-ovk-hfh-fish oil 500 MG capsule,delayed release(DR/EC) 500 mg PO DAILY pantoprazole 20 mg Tablet,Delayed Release (Dr/Ec) 20 mg PO DAILY metoprolol tartrate 50 mg Tablet 50 mg PO Q8H aspirin 81 mg Tablet 81 mg PO DAILY Eliquis 5 mg Tablet 5 mg PO BID sennosides-docusate sodium [Stool Softener-Stimulant Laxat] 8.6-50 mg Tablet 2 tab PO BID PRN PRN (Reason: Constipation) Qty: 0 0RF nitroglycerin 0.4 mg Tablet, Sublingual 0.4 mg sublingual Q5M PRN (Reason: Cardiac/Chest Pain) Qty: 0 0RF oxycodone 5 mg Tablet 5 mg PO Q6H PRN (Reason: pain) 7 Days Qty: 28 0RF Discontinued furosemide [Lasix] 40 mg Tablet 40 mg PO BID Hold Instructions: Hold for 5 days and decide after repeat BMP Rx Instructions: Take one(1) tablet two(2) times daily form 03/25-03/28, Then Take one(1) tablet daily. acetaminophen [Tylenol] 325 mg Tablet 650 mg PO Q4H PRN PRN (Reason: Fever, pain 1-10) Qty: 0 0RF cefadroxil 500 mg capsule 500 mg PO BID insulin lispro [Humalog KwikPen Insulin] 100 unit/mL insulin pen See Protocol subcut [facility] Protocol: 3. Sliding Scale Insulin Med Dosing Condition: 150-189 mg/dl = 1 unit Condition: 190-229 mg/dl = 2 units Condition: 230-269 mg/dl = 3 units Condition: 270-309 mg/dl = 4 units Condition: 310-349 mg/dl = 5 units Condition: 350-399 mg/dl = 6 units Condition: 400-449 mg/dl = 7 units Condition: Greater than 449 call physician Protocol Text: - Use for Total Daily Dose of Insulin 37-55 units - Obsese, infected, or steroid patients MEDIUM DOSING ALGORITHIM Referrals / Follow Up: Jose Antonio Dalton DO [Primary Care Provider] - 04/01/22 10:00 am Disposition Disposition (needs filled in before D/C Order can be placed): Home Health Service
[2022-03-30] MEDS: oxyCODONE 5 MG Tablet PO (20:23)
[2022-03-30 21:30] VITALS: BP 113/60; PULSE 94
[2022-03-30] MEDS: Atorvastatin Calcium 40 MG Tablet PO (21:30)
[2022-03-30 22:00] VITALS: PULSE 94; RESP 16
[2022-03-31 05:22] LABS: Hematocrit 30.5 % (37-47)
[2022-03-31 06:36] LABS: Bedside Glucose 198 mg/dL (74-106)
[2022-03-31 06:43] VITALS: BP 107/66; PULSE 84
[2022-03-31] MEDS: APIXABAN 5 MG TABLET PO (06:43)
[2022-03-31] MEDS: Pantoprazole Sodium 20 MG Tablet PO (06:43)
[2022-03-31] MEDS: Nystatin Powder 15gm Bottle 1 APPLIC TOPICAL (06:43)
[2022-03-31] MEDS: Metoprolol Tartrate 50 MG Tablet PO (06:43)
[2022-03-31] MEDS: Senna/Docusate Sodium 1 Tablet 2 TABLET PO (06:43)
[2022-03-31] MEDS: Cefadroxil 500 MG CAPSULE PO (06:43)
[2022-03-31] MEDS: Acetaminophen 500 MG Tablet 1000 MG PO (06:46)
[2022-03-31] MEDS: Multivitamins,Ther W-Minerals Tablet 1 TABLET PO (08:21)
[2022-03-31] MEDS: Aspirin 81 MG TAB.CHEW PO (08:21)
[2022-03-31 09:30] VITALS: BP 128/58; PULSE 69; RESP 18; TEMP 36.3; O2SAT 98
--- NOTE | 2022-04-08 09:31 | MDS.RN ---
Information for the mds was obtained from review of the clinical record, interview of resident, staff, and direct observation of resident's care. PDPM codes did not generate with completion of MDS assessment, error report sent to [facility] information systems.
== END 2022-03-31 09:40 | disposition home health service (06) | DRG 949 ==
PROVIDERS: Admitting Provider Family Medicine Geriatric Medicine; PCP Student in an Organized Health Care Education/Training Program; Visit Provider Family Medicine Geriatric Medicine
DX: Z48.812 Encounter for surgical aftercare following surgery on the circulatory system (principal); N39.0 Urinary tract infection, site not specified; E11.9 Type 2 diabetes mellitus without complications; I48.0 Paroxysmal atrial fibrillation; Z79.4 Long term (current) use of insulin; E78.5 Hyperlipidemia, unspecified; I10 Essential (primary) hypertension; I25.10 Atherosclerotic heart disease of native coronary artery without angina pectoris; K21.9 Gastro-esophageal reflux disease without esophagitis; I35.0 Nonrheumatic aortic (valve) stenosis; Z79.01 Long term (current) use of anticoagulants; Z95.1 Presence of aortocoronary bypass graft; Z79.899 Other long term (current) drug therapy; Z79.82 Long term (current) use of aspirin
CPT/HCPCS: 36415; 80048; 82962; 85014; 85018; 85025; 87811; 97110; 97116; 97162; 97165; 97530; 97535; 97802

== ENCOUNTER → 2022-07-08 | Outpatient (CLI) | payer MEDICARE, OTHER, SELFPAY ==
--- NOTE | 2022-07-08 09:39 | CR.HP_ITS ---
CR - History & Physical - General Arrival date:: 07/08/22 Arrival time:: 09:39 Date of Referral:: 06/29/22 Date of CR Evaluation:: 07/08/22 Referring Physician: Dr. Corin Mattson Primary Diagnosis: S/P CABG AVR with cardiopulmonary bypass LAD-MEDNEZ, PBL-SVG - History of Present Cardiac Event Onset Date: Enter Onset Date of cardiac illnesses in Comment field below Coronary Artery Bypass Graft:: Yes - 03/17/22 LAD-MENDEZ, P[facility]-SVG Heart valve replacement or repair:: Yes - AVR - Sleep Disorder Evaluation Hx of Sleep Apnea: No Do you snore loudly (louder than talking or can be heard through closed doors)?: No Do you often feel tired/ fatigued/ sleepy during daytime?: No Has anyone observed you stop breathing during sleep?: No History of Hypertension (for STOP score): Yes STOP Results: Negative - Medications Home Medications: Ambulatory Orders Medication Instructions Recorded atorvastatin 40 mg tablet 40 mg PO DAILY Cholesterol 07/03/19 multivitamin with minerals 1 tab PO DAILY supplement 07/03/19 omega 3-dha 60 mg-epa 90 mg-fish 500 mg PO DAILY supplement 07/03/19 oil 500 mg capsule, delayed release apixaban 5 mg tablet (Eliquis) 5 mg PO BID blood thinner 03/27/22 aspirin 81 mg tablet 81 mg PO DAILY heart health 03/27/22 metoprolol tartrate 50 mg tablet 50 mg PO Q8H blood pressure 03/27/22 pantoprazole 20 mg tablet,delayed 20 mg PO DAILY stomach 03/27/22 release nitroglycerin 0.4 mg sublingual 0.4 mg sublingual Q5M PRN 03/28/22 tablet Cardiac/Chest Pain #0 tabs sennosides 8.6 mg-docusate sodium 2 tab PO BID PRN PRN Constipation 03/28/22 50 mg tablet (Stool #0 tabs Softener-Stimulant Laxative) acetaminophen 500 mg tablet 1,000 mg PO Q6H PRN PRN Pain Score 03/30/22 1-3 #0 tabs oxycodone 5 mg tablet 5 mg PO Q6H PRN pain 7 days #28 03/30/22 tabs - Allergies Allergies/Adverse Reactions: Allergies No Known Allergies Allergy (Verified 07/03/19 23:21) Advanced Directives - Advanced Directives Power of Maintenance Service Dispatcher: Yes Living Will: Yes Advance Directives Information Provided: Yes Advance Directives on File: Yes DNR Order?:: No Past Medical History - Covid-19 Screening 65 years or older:: Yes Has a serious heart condition:: Yes - Past Medical Illness Medical History: Past Medical History (Last Reviewed 03/28/22 @ 21:[address] Eddie Sanchez MD) MONTRELL (acute kidney injury) N17.9 CAD (coronary artery disease) I25.10 Diabetes mellitus, type 2 E11.9 HLD (hyperlipidemia) E78.5 HTN (hypertension) I10 Obesity E66.9 PAF (paroxysmal atrial fibrillation) I48.0 Valvular heart disease I38 - Past Surgical History Surgical History: Past Surgical History (Last Reviewed 03/28/22 @ 21:[address] Eddie Sanchez MD) History of bilateral tubal ligation Z98.51 S/P AVR (aortic valve replacement) Z95.2 #23 CE AVR 03/17/22 [facility] S/P CABG x 2 Z95.1 LAD-MENDEZ, [facility]G 03/17/22 [facility] S/P CABG x 2 Z95.1 - Family History Summary Family History: Family History (Last Reviewed 03/28/22 @ 21:[address] Eddie Sanchez MD) Mother Hypertension CVA (cerebral vascular accident) Father Myocardial infarction CAD (coronary artery disease) S/P CABG (coronary artery bypass graft) Social History - Smoking History Smoking Status: Never smoker Hx Tobacco Use: No - Alcohol Use Alcohol Usage: No - Substance Abuse Hx Substance Use: No - Occupation Occupation (List type of work in comments):: Retired - Hobbies, Recreation, Social Activities Hobbies: Other - gardening Recreational Activities: I am able to engage in all my recreational activities Social Environment - Status Marital Status: - Current Living Arrangements Living Environment:: Spouse - Children How many children do you have?: 3 Do any of your children live nearby?: Yes - Safety Do you feel safe in your surroundings?: Yes - Assistance Do you need any assistance at home?: no Review of Systems - Review of Systems Hints: Right click = Denies ([place]). Left click = Reports ([place]) Review of Present Symptoms: Reports: Fatigue, Heart Arrhythmia/Irregularities - post op A-fib, Appetite - Normal, Appetite - Special Diet, Sleep - Normal. 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 Eddie Sanchez MD) Mother Hypertension CVA (cerebral vascular accident) Father Myocardial infarction CAD (coronary artery disease) S/P CABG (coronary artery bypass graft) Motivation - Motivation to Participate On a scale of 1 to 10, how prepared are you to commit to attending program?: 5 - 5 What do you see as barriers to successfully being able to complete the program?: nothing What do you see as the benefits of succesfully completing the program? In other words, what do you hope to get out of participating in the program?: improved health Are there issues you are dealing with that will interfere with completing the program?: no Do you have a spouse or signficant other, family or friends who will help support you to complete the program?: yes
[2022-07-08 10:26] VITALS: BP 150/74; PULSE 65; O2SAT 98; BMI 28.8
--- NOTE | 2022-07-08 10:26 | PCM.CR.ITP ---
Diagnosis - General Information Admitting Diagnosis: S/P CABG, AVR Personal Learning Style:: Audio/Visual Barriers to Learning: No Barriers Stage of change r/t lifestyle modifications:: Contemplation Gave educational material for:: Treating Heart Disease, Emotions & Heart Disease, Stress Management & Relaxation, Sleep Disorders & Heart Disease, How The Heart Works, What it means to have Heart Disease, How Coronary Artery Disease is Diagnosed, Heart Procedures, What Heart Medications Do, Risk Factors & Modifications, Living an Active Life, Nutrition - Education/Goals Cardiac Rehabilitation Goals: 1. Maintain the individual as the primary focus of care. 2. To improve the patient's quality of life. 3. Identification of cardiac risk factors and provide cardiac risk factor management. 4. Enhance the psychosocial status of the patient. 5. Reconditioning enough to allow the patient to resume customary activities. 6. Control symptoms of cardiac disease Personal Goals: Initial Assessment: Improve energy level, Get back to work, or to resume activities faster, Improve muscle strength and endurance Scale for measuring improvement of personal goals: Enter appropriate number in Comments. 2 = Unchanged. 3 = Slightly Better. 4 = Moderate Improvement. 5 = Met my Goal - Diagnosis & Disease Process Outcomes/Goals: Pt IDs own risk factors & lifestyle modifications by Session 10, Verbalizes symptoms of angina & response by session 3., Pt independently manages, Other Additional Outcomes/Goals: Plan/Interventions: Assist Pt to ID & engage in lifestyle modification to reduce CVD risk, Instruct on individual risk factors, Review symptoms of angina & emergency actions, Review secondary diagnosis & identify educational needs., Other see comment 30 day Reassessments:: Not Met 30 day Reassessments:: Not Met 30 day Reassessments:: Not Met 30 day Reassessments:: Not Met Final Reassessments:: Not Met - Safety Referral to Physical Therapy: No Referral to [facility] Case Management: No Fall Risk Assessed:: Yes Assistive Devices:: None Exercise - Initial Assessment - Visit Date of Eval: 07/08/22 - initial eval Mets: Pre-: >3 METS for 30 minutes by discharge, >5 METS for 30 minutes by discharge, >7 METS for 30 minutes by discharge, Unable to meet goal due to: (see comment below) - Physician Prescribed Exercise Modalities: Treadmill, Airdyne, NuStep, SciFit, Lateral Air Intercept Controller Frequency: 3x/week for 12 weeks [36 sessions] Intensity: 60-80% of age predicted maximum heart rate reserve Current METSs:: 3 Target Heart Rate:: 99-114 Resting Blood Pressure: 150/74 EKG Type: paroxysmal A-Fib - Outcomes & Goals Goals:: Verbalizes understanding of THR, RPE & goal METS by session 6, Documents in home exercise log/reports 30 min aerobic 5 day/wk by DC, Demonstrates accurate pulse taking by DC, Other additional outcome/goals: see below - Intervention & Plan Exercise Program Goals: Instruct on personal THR & RPE, Instruct on MET level & personal MET goal, Show patient to take own pulse /validate performance until accurate, Instruct on home exercise, Other additional plan/int - Physical Activity Home Exercise Physical Activity - Home Exercise: Safe Exercise, Warm-up, Self-monitoring, Cool-Down, Home Exercise > 30 min Daily, Sitting Time <3 hours/daily - Outcomes & Goals Outcomes/Goals: Demonstrates correct Warm-up/exercise Cool-Down (S3) if = 2.5 METs, Verbalizes symptoms of exercise intolerance by Session 3 (S3), Demonstrate safe equipment use (S3) & follows exercise prescrition (6), Other: See below - Intervention & Plan Plan/Intervention: Instruct warm-up & cool-down if exercising at > 2 METs, Instruct on symptoms of exercise intolerance & actions to take, Instruct & monitor on saf, Assess intial functional capacity & safety risk, Other See below Nutrition - Initial Assessment - Visit Date of Assessment:: 07/08/22 - initial eval - Cholesterol/Lipids (Other Core Measures) Determine presence & major risk factors that modify LDL goal: Hypertension or hypertensive medication, Low HDL cholesterol <40 mg/dL*, Family history of premature CHD in Male < 55 years: female <65 yearsFa, Age men > 45 years; women >/= 55 years Outcomes/Goals: Pt IDs own risk factors & lifestyle modifications by Session 10, Verbalizes symptoms of angina & response by session 3., Pt independently manages, Other Additional Outcomes/Goals: Intervention/Plan: Advocate for lipid panel cholesterol medication if applicable, Instruct on personal lipid levels & lipid goals/NCEP guidelines, Instruct on cholesterol, Other additional plan/int Referral to dietitian:: No - pt declines - Diabetes (Other Core Measures) Diabetes Type: Diagnosis Type II ICD-10 E11 Insulin dependent injection/pump?: No Non-Insulin Dependent?: Yes Do you monitor your blood sugar at home?: Yes Referral to Diabetic Clinic:: No - declines Outcomes/Goals:: Able to state symptoms of, Able to state, Able to state, Other additional Intervention/Plan:: Instruct on, Refer to, Instruct on, Other - Weight Mgt (Other Care) Height: 5 ft 5 in Weight:: 78.471 kg BMI: 28.8 Diagnosis Overweight/Obesity BMI> 30% ICD-10 E66: No Diagnosis High BMI/Morbid Obesity BMI> 35% ICD-10 Z68: No Outcomes/Goals: Pt sets, maintains & shows weight loss goal & trend during rehab, Other additional outcomes/goals Intervention/Plan: Instruct on ideal BMI & set weight loss goal w/patient, Assist pt to ID & incorporate diet changes for weight loss by S9, Refer to Structured Weight Loss program as appropriate, Encourage goal of using 250-300dcal per session for weight loss, Other additional plan/interventions - Healthy Eating Habits Will attend diet classes:: Yes Outcomes/Goals:: Consume diet rich in vegs,fruits,whole grain/high fiber,fish,lean meat, Limit sat/trans fats,cholesterol & added salts & sugars, Other additional outcome/goals: Intervention/Plan:: Assess current eating habits, Other Additional plan/interventions - Education Gave educational materials for:: Signs & symptoms of hypoglycemia, Signs & symptoms of hyperglycemia, Relate diabetes to coronary artery disease, Healthy eating Nutrition - 30-Day Assessment Nutrition - 60-Day Assessment Nutrition - 90-Day Assessment Nutrition - Final Assessment Core - Initial Assessment - Visit Date of Eval: 07/08/22 - initial eval - Medication Compliance Preventative Medication(s):: MAGDY inhibitor, Statin/lipid, Beta monserrat, Eliquis H/O mental health issues: depression, anxiety, or addiction?: No Doesn?t believe in the benefits of treatment?: No Believes medications are unnecessary or harmful?: No Has a concern about medication side effects?: No Expresses concern over the cost of medications?: No Outcomes/Goals: Verbalizes medications,desired effect & common side effects @ DC, Pt self-reports following medication regimen, Keeps card in wallet w/medications listed by DC, Other additional outcome/goals: Interventions/plans: Instruct on medication effects & side effects, Review medication list w/patient every two weeks, Instruct importance of taking meds as ordered & assist problem solving, Other additional - Tobacco Use Tobacco Use: Non-smoker Do you use smokeless tobacco?: No - Hypertension Hypertension Diagnosis:: Hypertension ICD-10 I10 Resting Blood Pressure:: 150/74 [place] [employer] Hypertension Guidelines: [place] [employer] Hypertension Guidelines. Normal BP Less than 120/80. Elevated BP 120/80. Hypertension Stage 1: BP 130-139/80-89. Hypertesnion Stage 2: BP 140 or higher/90 or higher. Hypertension Crisis: BP higher than 180/120 Outcomes/Goals: Able to verbalize/achieve optimal blood pressure <130/80, Incorporates diet changes & exercise for blood pressure control by DC, Other additional outcomes/goals Interventions/plan: Instruct on optimal blood pressure, hypertension & medications, Instruct on effects of sodium, alcohol, stress, exercise &hypertension, Other additional plan/interventions - Tobacco Cessation Referral Smoking Cessation Referral:: No Individual Education/Counseling:: No Education Schedule Given:: Yes Core - 30-Day Assessment Core - 60-Day Assessment Core - 90 Day Assessment Core - Final Assessment Psychosocial - Initial Assess - VIsit Date of Eval: 07/08/22 - initial eval History of previous Mental disease:: No - Outcomes/Goals: See list Psychosocial Outcomes/Goals:: ID's personal stressors & 2 strategies to manage stress by discharge, Other Additional outcome/goals: - Intervention/Plan: See List Interventions/Plan:: Assess stressors,coping strategies & signs of derpression on admission, Instruct/assist pt to develop coping & personal stress Mgt strategies, Refer to Behavioral Health if appropriate, Refer to Physician if appropriate, Instruct patient to recognize signs & symptoms of depression, Instruct patient to recog, Other additional plan/intervention Psychosocial - 30-Day Assess Psychosocial - 60-Day Assess Psychosocial - 90-Day Assess Psychosocial - Final Assessmen Patient Health Questionnaire Initial Assessment 1. Little interest or pleasure in doing things: Not at all 2. Feeling down, depressed, or hopeless: Not at all 3. Trouble falling or staying asleep, or sleeping too much: Not at all 4. Feeling tired or having little energy: Several days 5. Poor appetite or overeating: Not at all 6. Feeling bad about yourself -- or that you are a failure or have let yourself or your family down: Not at all 7. Trouble concentrating on things, such as reading the newspaper or watching television: Not at all 8. Moving or speaking so slowly that other people could have noticed. Or the opposite - being so fidgety or restless that you have been moving around a lot more than usual: Not at all 9. Thoughts that you would be better off , or of hurting yourself in some way: Not at all How difficult have these problems made it for you to do your work, take care of things at home, or get along with other people?: Not difficult at all Total Score: 1 ANGEL-Q SV Test - Statements CAD is a disease of the arteries in the heart: False Examples of risk factors for heart disease: True Angina is chest pain or discomfort: True The benefits of resistance training include: True Eating more meat and dairy products: False Anti-platelet medications such as aspirin are important: True The only effective way to manage stress: False An exercise warm-up slowly increases heart rate: True Prepared, processed foods usually have high sodium: True Depression is common after a heart attack: True The statin medications lower cholesterol: True To control blood pressure, lower the amount of sodium: True If someone gets chest discomfort during walking: False Transfats are partially hydrogenated vegetable oils: True Sleep apnea that is not treated increases the risk: I Don't Know To control cholesterol, one should become a vegetarian: False Someone knows if he/she is exercising at the right level: True Diabetes cannot be prevented with exercise & health eating: True Stress is a large risk for heart attack: True A diet that can help lower blood pressure is rich in: True - Total Score Total Correct Responses: 18 Self-Efficacy Initial Assessment We would like to know how confident you are in doing certain activities. Please select your confidence level for:: Select your confidence level for the following using the scale 1-10 where 1 is not at all confident and 10 is totally confident. Your score is the average of all 6 responses. Fatigue: How confident are you that you can keep the fatigue caused by your disease from interfering with the things you want to do? Select Number: 5 Physical Discomfort or Pain: How confident are you that you can keep the physical discomfort or pain of your disease from interfering with the things you want to do? Select Number: 5 Emotional Distress: How confident are you that you can keep the emotional distress caused by your disease from interfering with the things you want to do? Select Number: 10 Other Symptoms or Health Problems: How confident are you that you can keep other symptoms or health problems from interfering with the things you want to do? Select Number: 9 Different Tasks and Activities: How confident are you that you can do the different tasks and activities needed to manage your health condition so as to reduce your need to see a doctor? Select Number: 9 Medication: How confident are you that you can do things other than just taking medication to reduce how much your illness affects your everyday life? Select Number: 9 Total Score:: 7 Nutrition Survey - Nutrition Survey Initial Have you lost >10 lbs over the past 2 months without trying?: No Are you following a special diet at home for diabetes, low fat, or low salt?: Yes Are you interested in meeting with a dietitian for help understanding your diet?: No Do you eat less than 3 meals a day?: No Do you eat fatty meats (kowalski, sausage, ribs, etc), fried foods, desserts, large amounts of salad dressings, margarine, butter, or cheese most days?: No Do you have food allergies? [Enter types in comment field]: No Do you eat in restaurants more than 3 times a week?: No Do you season food with salt, seasoning salt, or garlic salt?: No Do you used canned, boxed, frozen meals, or soups, seasoning packets?: Yes Total Score:: 2
[2022-07-08 10:39] VITALS: BP 150/74; BMI 28.8
== END | disposition home or self-care (01) ==
LOC: CR 09:32
PROVIDERS: PCP Student in an Organized Health Care Education/Training Program; Visit Provider Internal Medicine Cardiovascular Disease
DX: I25.810 Atherosclerosis of coronary artery bypass graft(s) without angina pectoris (principal); Z95.1 Presence of aortocoronary bypass graft; Z86.79 Personal history of other diseases of the circulatory system; R53.83 Other fatigue; I49.9 Cardiac arrhythmia, unspecified; I97.89 Other postprocedural complications and disorders of the circulatory system, not elsewhere classified

== ENCOUNTER 2022-07-20 13:00 | Outpatient (RCR) | payer MEDICARE, OTHER, SELFPAY ==
[2022-07-08 10:39] VITALS: BMI 28.8
== END 2022-07-21 23:59 ==
LOC: CR 13:00
PROVIDERS: PCP Student in an Organized Health Care Education/Training Program; Referring Provider Internal Medicine Cardiovascular Disease; Visit Provider Internal Medicine Cardiovascular Disease
DX: Z95.1 Presence of aortocoronary bypass graft (principal); Z95.2 Presence of prosthetic heart valve
CPT/HCPCS: 93798

== ENCOUNTER 2022-08-17 13:00 | Outpatient (RCR) | payer MEDICARE, OTHER, SELFPAY ==
[2022-07-08 10:39] VITALS: BMI 28.8
--- NOTE | 2022-08-07 11:30 | CR.ITP_ITS ---
Diagnosis Exercise - 30-day Assessment - Visit Date of Eval: 08/07/22 Session #:: 11 - Physician Prescribed Exercise Modalities: Treadmill, NuStep, SciFit Frequency: 3x/week for 12 weeks [36 sessions] Intensity: 60-80% of age predicted maximum heart rate reserve Current METSs:: 3 Target Heart Rate:: 99-114 Current RPE:: 12-14 Maximum Excercise HR:: 86 Resting Blood Pressure: 150/60 Maximum Exercise Blood Pressure: 150/60 EKG Type: NSR/BBB to sinus tachy with occas PAC and rare PVC - Outcomes & Goals Goals:: Verbalizes understanding of THR, RPE & goal METS by session 6, Documents in home exercise log/reports 30 min aerobic 5 day/wk by DC, Demonstrates accurate pulse taking by DC, Other additional outcome/goals: see below - Intervention & Plan Exercise Program Goals: Instruct on personal THR & RPE, Instruct on MET level & personal MET goal, Show patient to take own pulse /validate performance until accurate, Instruct on home exercise, Other additional plan/int - 30-day Reassessments 30 day Reassessments:: Progressing - slowly increasing exercise tolerance - Physical Activity Home Exercise Physical Activity - Home Exercise: Safe Exercise, Warm-up, Self-monitoring, Cool-Down, Home Exercise > 30 min Daily, Sitting Time <3 hours/daily - Outcomes & Goals Outcomes/Goals: Demonstrates correct Warm-up/exercise Cool-Down (S3) if = 2.5 METs, Verbalizes symptoms of exercise intolerance by Session 3 (S3), Demonstrate safe equipment use (S3) & follows exercise prescrition (6), Other: See below - Intervention & Plan Plan/Intervention: Instruct warm-up & cool-down if exercising at > 2 METs, Instruct on symptoms of exercise intolerance & actions to take, Instruct & monitor on saf, Assess intial functional capacity & safety risk, Other See below - 30-day Reassessments 30 day Reassessments:: Progressing - warm up explained Nutrition - Initial Assessment Nutrition - 30-Day Assessment - Visit Date of Assessment:: 08/07/22 Session #:: 11 - Cholesterol/Lipids (Other Core Measures) Determine presence & major risk factors that modify LDL goal: Hypertension or hypertensive medication, Low HDL cholesterol <40 mg/dL*, Family history of premature CHD in Male < 55 years: female <65 yearsFa, Age men > 45 years; women >/= 55 years Outcomes/Goals: Pt IDs own risk factors & lifestyle modifications by Session 10, Verbalizes symptoms of angina & response by session 3., Pt independently manages, Other Additional Outcomes/Goals: Intervention/Plan: Advocate for lipid panel cholesterol medication if applicable, Instruct on personal lipid levels & lipid goals/NCEP guidelines, Instruct on cholesterol, Other additional plan/int Referral to dietitian:: No - declines 30-day Reassessments:: Progressing - encouraged to do her bloodwork - Diabetes (Other Core Measures) Diabetes Type: Diagnosis Type II ICD-10 E11 Insulin dependent injection/pump?: No Non-Insulin Dependent?: Yes Do you monitor your blood sugar at home?: Yes Referral to Diabetic Clinic:: No - declines Outcomes/Goals:: Able to state symptoms of, Able to state, Able to state, Other additional Intervention/Plan:: Instruct on, Refer to, Instruct on, Other 30-day Reassessments:: Progressing - encouraged to check blood sugar - Weight Mgt (Other Care) Height: 5 ft 5 in Weight:: 81.42 kg BMI: 29.8 Diagnosis Overweight/Obesity BMI> 30% ICD-10 E66: No Diagnosis High BMI/Morbid Obesity BMI> 35% ICD-10 Z68: No Outcomes/Goals: Pt sets, maintains & shows weight loss goal & trend during rehab, Other additional outcomes/goals Intervention/Plan: Instruct on ideal BMI & set weight loss goal w/patient, Assist pt to ID & incorporate diet changes for weight loss by S9, Refer to Structured Weight Loss program as appropriate, Encourage goal of using 250- 300dcal per session for weight loss, Other additional plan/interventions 30 day Reassessments:: Progressing - will attend nutrition class - Healthy Eating Habits Will attend diet classes:: Yes Outcomes/Goals:: Consume diet rich in vegs,fruits,whole grain/high fiber,f isabell,lean meat, Limit sat/trans fats,cholesterol & added salts & sugars, Other additional outcome/goals: Intervention/Plan:: Assess current eating habits, Other Additional plan /interventions 30-day Reassessments:: Progressing - will attend nutrition class - Education Gave educational materials for:: Signs & symptoms of hypoglycemia, Signs & symptoms of hyperglycemia, Relate diabetes to coronary artery disease, Healthy eating Nutrition - 60-Day Assessment Nutrition - 90-Day Assessment Nutrition - Final Assessment Core - Initial Assessment Core - 30-Day Assessment - Visit Date of Eval: 08/07/22 Session #:: 11 - Medication Compliance Preventative Medication(s):: MAGDY inhibitor, Statin/lipid, Beta monserrat, Eliquis H/O mental health issues: depression, anxiety, or addiction?: No Doesn?t believe in the benefits of treatment?: No Believes medications are unnecessary or harmful?: No Has a concern about medication side effects?: No Expresses concern over the cost of medications?: No Outcomes/Goals: Verbalizes medications,desired effect & common side effects @ DC, Pt self-reports following medication regimen, Keeps card in wallet w/medications listed by DC, Other additional outcome/goals: Interventions/plans: Instruct on medication effects & side effects, Review medication list w/patient every two weeks, Instruct importance of taking meds as ordered & assist problem solving, Other additional 30-day Reassessments:: Progressing - encouraged to take meds - Tobacco Use Tobacco Use: Non-smoker Do you use smokeless tobacco?: No - Hypertension Hypertension Diagnosis:: Hypertension ICD-10 I10 Resting Blood Pressure:: 150/60 [place] [employer] Hypertension Guidelines: [place] [employer] Hypertension Guidelines. Normal BP Less than 120/80. Elevated BP 120/80. Hypertension Stage 1: BP 130-139/80-89. Hypertesnion Stage 2: BP 140 or higher/90 or higher. Hypertension Crisis: BP higher than 180/120 Peak Exercise Blood Pressure:: 150/60 Outcomes/Goals: Able to verbalize/achieve optimal blood pressure <130/80, Incorporates diet changes & exercise for blood pressure control by DC, Other additional outcomes/goals Interventions/plan: Instruct on optimal blood pressure, hypertension & medications, Instruct on effects of sodium, alcohol, stress, exercise &hypertension, Other additional plan/interventions 30 day Reassessments:: Progressing - encouraged to take meds - Tobacco Cessation Referral Smoking Cessation Referral:: No Individual Education/Counseling:: No Education Schedule Given:: Yes Core - 60-Day Assessment Core - 90 Day Assessment Core - Final Assessment Psychosocial - Initial Assess Psychosocial - 30-Day Assess - VIsit Date of Eval: 08/07/22 Session #:: 11 History of previous Mental disease:: No Psychosocial - 60-Day Assess Psychosocial - 90-Day Assess Psychosocial - Final Assessmen Patient Health Questionnaire 30-Day Re-eval Assessment 1. Little interest or pleasure in doing things: Not at all 2. Feeling down, depressed, or hopeless: Not at all 3. Trouble falling or staying asleep, or sleeping too much: Not at all 4. Feeling tired or having little energy: Several days 5. Poor appetite or overeating: Not at all 6. Feeling bad about yourself -- or that you are a failure or have let yourself or your family down: Not at all 7. Trouble concentrating on things, such as reading the newspaper or watching television: Not at all 8. Moving or speaking so slowly that other people could have noticed. Or the opposite - being so fidgety or restless that you have been moving around a lot more than usual: Not at all 9. Thoughts that you would be better off , or of hurting yourself in some way: Not at all How difficult have these problems made it for you to do your work, take care of things at home, or get along with other people?: Not difficult at all Total Score: 1 Self-Efficacy 30-Day Re-eval Assessment We would like to know how confident you are in doing certain activities. Please select your confidence level for:: Select your confidence level for the following using the scale 1-10 where 1 is not at all confident and 10 is totally confident. Your score is the average of all 6 responses. Fatigue: How confident are you that you can keep the fatigue caused by your disease from interfering with the things you want to do? Select Number: 5 Physical Discomfort or Pain: How confident are you that you can keep the physical discomfort or pain of your disease from interfering with the things you want to do? Select Number: 5 Emotional Distress: How confident are you that you can keep the emotional distress caused by your disease from interfering with the things you want to do? Select Number: 10 Other Symptoms or Health Problems: How confident are you that you can keep other symptoms or health problems from interfering with the things you want to do? Select Number: 9 Different Tasks and Activities: How confident are you that you can do the different tasks and activities needed to manage your health condition so as to reduce your need to see a doctor? Select Number: 9 Medication: How confident are you that you can do things other than just taking medication to reduce how much your illness affects your everyday life? Select Number: 9 Total Score:: 7 Nutrition Survey
[2022-08-07 11:48] VITALS: BP 150/60; BMI 29.8
== END 2022-08-18 23:59 ==
LOC: CR 13:00
PROVIDERS: PCP Student in an Organized Health Care Education/Training Program; Referring Provider Internal Medicine Cardiovascular Disease; Visit Provider Internal Medicine Cardiovascular Disease
DX: Z95.1 Presence of aortocoronary bypass graft (principal); Z95.2 Presence of prosthetic heart valve
CPT/HCPCS: 93798

== ENCOUNTER 2022-09-18 13:00 | Outpatient (RCR) | payer MEDICARE, OTHER, SELFPAY ==
[2022-08-07 11:48] VITALS: BMI 29.8
[2022-08-19 00:29] VITALS: BP 150/60
--- NOTE | 2022-09-04 10:33 | PCM.CR.ITP ---
Diagnosis Exercise - 60-day Assessment - Visit Date of Eval: 09/04/22 Session #:: 23 - Physician Prescribed Exercise Modalities: Treadmill, Airdyne, NuStep, SciFit Frequency: 3x/week for 12 weeks [36 sessions] Intensity: 60-80% of age predicted maximum heart rate reserve Current METSs:: 4.5 Target Heart Rate:: 99-114 Current RPE:: 12-13 Maximum Excercise HR:: 95 Resting Blood Pressure: 116/52 Maximum Exercise Blood Pressure: 142/64 EKG Type: NSR/BBB to ST with occas multifocal PVC's - Outcomes & Goals Goals:: Verbalizes understanding of THR, RPE & goal METS by session 6, Documents in home exercise log/reports 30 min aerobic 5 day/wk by DC, Demonstrates accurate pulse taking by DC, Other additional outcome/goals: see below - Intervention & Plan Exercise Program Goals: Instruct on personal THR & RPE, Instruct on MET level & personal MET goal, Show patient to take own pulse /validate performance until accurate, Instruct on home exercise, Other additional plan/int - 30-day Reassessments 30 day Reassessments:: Progressing - THR explained - Physical Activity Home Exercise Physical Activity - Home Exercise: Safe Exercise, Warm-up, Self-monitoring, Cool-Down, Home Exercise > 30 min Daily, Sitting Time <3 hours/daily - Outcomes & Goals Outcomes/Goals: Demonstrates correct Warm-up/exercise Cool-Down (S3) if = 2.5 METs, Verbalizes symptoms of exercise intolerance by Session 3 (S3), Demonstrate safe equipment use (S3) & follows exercise prescrition (6), Other: See below - Intervention & Plan Plan/Intervention: Instruct warm-up & cool-down if exercising at > 2 METs, Instruct on symptoms of exercise intolerance & actions to take, Instruct & monitor on saf, Assess intial functional capacity & safety risk, Other See below - 30-day Reassessments 30 day Reassessments:: Progressing - Warm up encouraged Nutrition - Initial Assessment Nutrition - 30-Day Assessment Nutrition - 60-Day Assessment - Cholesterol/Lipids (Other Core Measures) Determine presence & major risk factors that modify LDL goal: Hypertension or hypertensive medication, Low HDL cholesterol <40 mg/dL*, Family history of premature CHD in Male < 55 years: female <65 yearsFa, Age men > 45 years; women >/= 55 years Outcomes/Goals: Pt IDs own risk factors & lifestyle modifications by Session 10, Verbalizes symptoms of angina & response by session 3., Pt independently manages, Other Additional Outcomes/Goals: Intervention/Plan: Advocate for lipid panel cholesterol medication if applicable, Instruct on personal lipid levels & lipid goals/NCEP guidelines, Instruct on cholesterol, Other additional plan/int 30-day Reassessments:: Progressing - encouraged to do bloodwork - Diabetes (Other Core Measures) Diabetes Type: Diagnosis Type II ICD-10 E11 Insulin dependent injection/pump?: No Non-Insulin Dependent?: Yes Do you monitor your blood sugar at home?: Yes Referral to Diabetic Clinic:: No - declines Outcomes/Goals:: Able to state symptoms of, Able to state, Able to state, Other additional Intervention/Plan:: Instruct on, Refer to, Instruct on, Other 30-day Reassessments:: Progressing - encouraged to check Blood Sugar - Weight Mgt (Other Care) Height: 5 ft 5 in Weight:: 81.193 kg BMI: 29.7 Diagnosis Overweight/Obesity BMI> 30% ICD-10 E66: No Diagnosis High BMI/Morbid Obesity BMI> 35% ICD-10 Z68: No Outcomes/Goals: Pt sets, maintains & shows weight loss goal & trend during rehab, Other additional outcomes/goals Intervention/Plan: Instruct on ideal BMI & set weight loss goal w/patient, Assist pt to ID & incorporate diet changes for weight loss by S9, Refer to Structured Weight Loss program as appropriate, Encourage goal of using 250-300dcal per session for weight loss, Other additional plan/interventions 30 day Reassessments:: Met - Healthy Eating Habits Will attend diet classes:: Yes Outcomes/Goals:: Consume diet rich in vegs,fruits,whole grain/high fiber,fish,lean meat, Limit sat/trans fats,cholesterol & added salts & sugars, Other additional outcome/goals: 30-day Reassessments:: Met - Education Gave educational materials for:: Signs & symptoms of hypoglycemia, Signs & symptoms of hyperglycemia, Relate diabetes to coronary artery disease, Healthy eating Nutrition - 90-Day Assessment Nutrition - Final Assessment Core - Initial Assessment Core - 30-Day Assessment Core - 60-Day Assessment - Visit Date of Eval: 09/04/22 Session #:: 23 - Medication Compliance Preventative Medication(s):: MAGDY inhibitor, Statin/lipid, Beta monserrat, Eliquis H/O mental health issues: depression, anxiety, or addiction?: No Doesn?t believe in the benefits of treatment?: No Believes medications are unnecessary or harmful?: No Has a concern about medication side effects?: No Expresses concern over the cost of medications?: No Outcomes/Goals: Verbalizes medications,desired effect & common side effects @ DC, Pt self-reports following medication regimen, Keeps card in wallet w/medications listed by DC, Other additional outcome/goals: Interventions/plans: Instruct on medication effects & side effects, Review medication list w/patient every two weeks, Instruct importance of taking meds as ordered & assist problem solving, Other additional 30-day Reassessments:: Progressing - encouraged to take meds - Tobacco Use Tobacco Use: Non-smoker - Hypertension Hypertension Diagnosis:: Hypertension ICD-10 I10 Resting Blood Pressure:: 116/52 [place] [employer] Hypertension Guidelines: [place] [employer] Hypertension Guidelines. Normal BP Less than 120/80. Elevated BP 120/80. Hypertension Stage 1: BP 130-139/80-89. Hypertesnion Stage 2: BP 140 or higher/90 or higher. Hypertension Crisis: BP higher than 180/120 Peak Exercise Blood Pressure:: 142/64 Outcomes/Goals: Able to verbalize/achieve optimal blood pressure <130/80, Incorporates diet changes & exercise for blood pressure control by DC, Other additional outcomes/goals Interventions/plan: Instruct on optimal blood pressure, hypertension & medications, Instruct on effects of sodium, alcohol, stress, exercise &hypertension, Other additional plan/interventions 30 day Reassessments:: Progressing - encouraged to take meds - Tobacco Cessation Referral Smoking Cessation Referral:: No Individual Education/Counseling:: No Education Schedule Given:: Yes Core - 90 Day Assessment Core - Final Assessment Psychosocial - Initial Assess Psychosocial - 30-Day Assess Psychosocial - 60-Day Assess - VIsit Date of Eval: 09/04/22 Session #:: 23 History of previous Mental disease:: No Psychosocial - 90-Day Assess Psychosocial - Final Assessmen Patient Health Questionnaire 60-Day Re-eval Assessment 1. Little interest or pleasure in doing things: Not at all 2. Feeling down, depressed, or hopeless: Not at all 3. Trouble falling or staying asleep, or sleeping too much: Several days 4. Feeling tired or having little energy: Not at all 5. Poor appetite or overeating: Not at all 6. Feeling bad about yourself -- or that you are a failure or have let yourself or your family down: Not at all 7. Trouble concentrating on things, such as reading the newspaper or watching television: Not at all 8. Moving or speaking so slowly that other people could have noticed. Or the opposite - being so fidgety or restless that you have been moving around a lot more than usual: Not at all 9. Thoughts that you would be better off , or of hurting yourself in some way: Not at all How difficult have these problems made it for you to do your work, take care of things at home, or get along with other people?: Not difficult at all Total Score: 1 Self-Efficacy 60-Day Re-eval Assessment We would like to know how confident you are in doing certain activities. Please select your confidence level for:: Select your confidence level for the following using the scale 1-10 where 1 is not at all confident and 10 is totally confident. Your score is the average of all 6 responses. Fatigue: How confident are you that you can keep the fatigue caused by your disease from interfering with the things you want to do? Select Number: 5 Physical Discomfort or Pain: How confident are you that you can keep the physical discomfort or pain of your disease from interfering with the things you want to do? Select Number: 5 Emotional Distress: How confident are you that you can keep the emotional distress caused by your disease from interfering with the things you want to do? Select Number: 10 Other Symptoms or Health Problems: How confident are you that you can keep other symptoms or health problems from interfering with the things you want to do? Select Number: 9 Different Tasks and Activities: How confident are you that you can do the different tasks and activities needed to manage your health condition so as to reduce your need to see a doctor? Select Number: 9 Medication: How confident are you that you can do things other than just taking medication to reduce how much your illness affects your everyday life? Select Number: 9 Total Score:: 7 Nutrition Survey
[2022-09-04 10:49] VITALS: BP 116/52; BP 142/64; BMI 29.7
== END 2022-09-18 23:59 ==
LOC: CR 13:00
PROVIDERS: PCP Student in an Organized Health Care Education/Training Program; Referring Provider Internal Medicine Cardiovascular Disease; Visit Provider Internal Medicine Cardiovascular Disease
DX: Z95.1 Presence of aortocoronary bypass graft (principal); Z95.2 Presence of prosthetic heart valve; I48.0 Paroxysmal atrial fibrillation; I10 Essential (primary) hypertension; I35.0 Nonrheumatic aortic (valve) stenosis; I25.110 Atherosclerotic heart disease of native coronary artery with unstable angina pectoris
CPT/HCPCS: 93798

== ENCOUNTER 2022-10-14 13:00 | Outpatient (RCR) | payer MEDICARE, OTHER, SELFPAY ==
[2022-09-04 10:49] VITALS: BMI 29.7
[2022-09-19 01:53] VITALS: BP 116/52; BP 142/64
--- NOTE | 2022-10-02 09:20 | PCM.CR.ITP ---
Diagnosis Exercise - 90-day Assessment - Visit Date of Eval: 10/02/22 Session #:: 32 - Physician Prescribed Exercise Modalities: Treadmill, NuStep, SciFit Frequency: 3x/week for 12 weeks [36 sessions] Intensity: 60-80% of age predicted maximum heart rate reserve Current METSs:: 5 Target Heart Rate:: 99-114 Current RPE:: 12-13 Maximum Excercise HR:: 101 Resting Blood Pressure: 140/58 Maximum Exercise Blood Pressure: 172/80 EKG Type: NSR/BBB to ST w/rare PAC and PVC - Outcomes & Goals Goals:: Verbalizes understanding of THR, RPE & goal METS by session 6, Documents in home exercise log/reports 30 min aerobic 5 day/wk by DC, Demonstrates accurate pulse taking by DC, Other additional outcome/goals: see below - Intervention & Plan Exercise Program Goals: Instruct on personal THR & RPE, Instruct on MET level & personal MET goal, Show patient to take own pulse /validate performance until accurate, Instruct on home exercise, Other additional plan/int - 30-day Reassessments 30 day Reassessments:: Met - Physical Activity Home Exercise Physical Activity - Home Exercise: Safe Exercise, Warm-up, Self-monitoring, Cool-Down, Home Exercise > 30 min Daily, Sitting Time <3 hours/daily - Outcomes & Goals Outcomes/Goals: Demonstrates correct Warm-up/exercise Cool-Down (S3) if = 2.5 METs, Verbalizes symptoms of exercise intolerance by Session 3 (S3), Demonstrate safe equipment use (S3) & follows exercise prescrition (6), Other: See below - Intervention & Plan Plan/Intervention: Instruct warm-up & cool-down if exercising at > 2 METs, Instruct on symptoms of exercise intolerance & actions to take, Instruct & monitor on saf, Assess intial functional capacity & safety risk, Other See below - 30-day Reassessments 30 day Reassessments:: Met Nutrition - Initial Assessment Nutrition - 30-Day Assessment Nutrition - 60-Day Assessment Nutrition - 90-Day Assessment - Visit Date of Assessment:: 10/02/22 Session #:: 32 - Cholesterol/Lipids (Other Core Measures) Determine presence & major risk factors that modify LDL goal: Hypertension or hypertensive medication, Low HDL cholesterol <40 mg/dL*, Family history of premature CHD in Male < 55 years: female <65 yearsFa, Age men > 45 years; women >/= 55 years Outcomes/Goals: Pt IDs own risk factors & lifestyle modifications by Session 10, Verbalizes symptoms of angina & response by session 3., Pt independently manages, Other Additional Outcomes/Goals: Intervention/Plan: Advocate for lipid panel cholesterol medication if applicable, Instruct on personal lipid levels & lipid goals/NCEP guidelines, Instruct on cholesterol, Other additional plan/int Referral to dietitian:: No - declines 30-day Reassessments:: Met - Diabetes (Other Core Measures) Diabetes Type: Diagnosis Type II ICD-10 E11 Insulin dependent injection/pump?: No Non-Insulin Dependent?: Yes Do you monitor your blood sugar at home?: Yes Referral to Diabetic Clinic:: No - declines Outcomes/Goals:: Able to state symptoms of, Able to state, Able to state, Other additional Intervention/Plan:: Instruct on, Refer to, Instruct on, Other 30-day Reassessments:: Met - Weight Mgt (Other Care) Height: 5 ft 5 in Weight:: 81.873 kg BMI: 30.0 Diagnosis Overweight/Obesity BMI> 30% ICD-10 E66: Yes Diagnosis High BMI/Morbid Obesity BMI> 35% ICD-10 Z68: No Outcomes/Goals: Pt sets, maintains & shows weight loss goal & trend during rehab, Other additional outcomes/goals Intervention/Plan: Instruct on ideal BMI & set weight loss goal w/patient, Assist pt to ID & incorporate diet changes for weight loss by S9, Refer to Structured Weight Loss program as appropriate, Encourage goal of using 250-300dcal per session for weight loss, Other additional plan/interventions 30 day Reassessments:: Progressing - will attend nutrition class - Healthy Eating Habits Will attend diet classes:: Yes Outcomes/Goals:: Consume diet rich in vegs,fruits,whole grain/high fiber,fish,lean meat, Limit sat/trans fats,cholesterol & added salts & sugars, Other additional outcome/goals: Intervention/Plan:: Assess current eating habits, Other Additional plan/interventions 30-day Reassessments:: Progressing - will attend nutrition class - Education Gave educational materials for:: Signs & symptoms of hypoglycemia, Signs & symptoms of hyperglycemia, Relate diabetes to coronary artery disease, Healthy eating Nutrition - Final Assessment Core - Initial Assessment Core - 30-Day Assessment Core - 60-Day Assessment Core - 90 Day Assessment - Visit Date of Eval: 10/02/22 Session #:: 32 - Medication Compliance Preventative Medication(s):: MAGDY inhibitor, Statin/lipid, Beta monserrat, Eliquis H/O mental health issues: depression, anxiety, or addiction?: No Doesn?t believe in the benefits of treatment?: No Believes medications are unnecessary or harmful?: No Has a concern about medication side effects?: No Expresses concern over the cost of medications?: No Outcomes/Goals: Verbalizes medications,desired effect & common side effects @ DC, Pt self-reports following medication regimen, Keeps card in wallet w/medications listed by DC, Other additional outcome/goals: Interventions/plans: Instruct on medication effects & side effects, Review medication list w/patient every two weeks, Instruct importance of taking meds as ordered & assist problem solving, Other additional 30-day Reassessments:: Met - taking meds as instructed - Tobacco Use Tobacco Use: Non-smoker - Hypertension Hypertension Diagnosis:: Hypertension ICD-10 I10 - 140/58 Citizen [place] [employer] Hypertension Guidelines: [place] [employer] Hypertension Guidelines. Normal BP Less than 120/80. Elevated BP 120/80. Hypertension Stage 1: BP 130-139/80-89. Hypertesnion Stage 2: BP 140 or higher/90 or higher. Hypertension Crisis: BP higher than 180/120 Peak Exercise Blood Pressure:: 172/80 Outcomes/Goals: Able to verbalize/achieve optimal blood pressure <130/80, Incorporates diet changes & exercise for blood pressure control by DC, Other additional outcomes/goals Interventions/plan: Instruct on optimal blood pressure, hypertension & medications, Instruct on effects of sodium, alcohol, stress, exercise &hypertension, Other additional plan/interventions 30 day Reassessments:: Progressing - taking meds - Tobacco Cessation Referral Smoking Cessation Referral:: No Individual Education/Counseling:: No Education Schedule Given:: Yes Core - Final Assessment Psychosocial - Initial Assess Psychosocial - 30-Day Assess Psychosocial - 60-Day Assess Psychosocial - 90-Day Assess - VIsit Date of Eval: 10/02/22 Session #:: 32 History of previous Mental disease:: No Psychosocial - Final Assessmen Patient Health Questionnaire 90-Day Re-eval Assessment 1. Little interest or pleasure in doing things: Not at all 2. Feeling down, depressed, or hopeless: Not at all 3. Trouble falling or staying asleep, or sleeping too much: Several days 4. Feeling tired or having little energy: Not at all 5. Poor appetite or overeating: Not at all 6. Feeling bad about yourself -- or that you are a failure or have let yourself or your family down: Not at all 7. Trouble concentrating on things, such as reading the newspaper or watching television: Not at all 8. Moving or speaking so slowly that other people could have noticed. Or the opposite - being so fidgety or restless that you have been moving around a lot more than usual: Not at all 9. Thoughts that you would be better off , or of hurting yourself in some way: Not at all How difficult have these problems made it for you to do your work, take care of things at home, or get along with other people?: Not difficult at all Total Score: 1 Self-Efficacy 90-Day Re-eval Assessment We would like to know how confident you are in doing certain activities. Please select your confidence level for:: Select your confidence level for the following using the scale 1-10 where 1 is not at all confident and 10 is totally confident. Your score is the average of all 6 responses. Fatigue: How confident are you that you can keep the fatigue caused by your disease from interfering with the things you want to do? Select Number: 5 Physical Discomfort or Pain: How confident are you that you can keep the physical discomfort or pain of your disease from interfering with the things you want to do? Select Number: 5 Emotional Distress: How confident are you that you can keep the emotional distress caused by your disease from interfering with the things you want to do? Select Number: 10 Other Symptoms or Health Problems: How confident are you that you can keep other symptoms or health problems from interfering with the things you want to do? Select Number: 9 Different Tasks and Activities: How confident are you that you can do the different tasks and activities needed to manage your health condition so as to reduce your need to see a doctor? Select Number: 9 Medication: How confident are you that you can do things other than just taking medication to reduce how much your illness affects your everyday life? Select Number: 9 Total Score:: 7 Nutrition Survey
[2022-10-02 09:29] VITALS: BP 140/58; BP 172/80
== END 2022-10-18 23:59 ==
LOC: CR 13:00
PROVIDERS: PCP Student in an Organized Health Care Education/Training Program; Referring Provider Internal Medicine Cardiovascular Disease; Visit Provider Internal Medicine Cardiovascular Disease
DX: Z95.1 Presence of aortocoronary bypass graft (principal); Z95.2 Presence of prosthetic heart valve; I48.0 Paroxysmal atrial fibrillation; I10 Essential (primary) hypertension; I35.0 Nonrheumatic aortic (valve) stenosis; I25.110 Atherosclerotic heart disease of native coronary artery with unstable angina pectoris
CPT/HCPCS: 93798